=== PATIENT | female | born 1995 | race American Indian/Alaskan Native ===

== ENCOUNTER 2018-03-14 11:43 | Emergency (ER) | payer SELFPAY ==
[2018-03-14] MEDS ORDERED: NACL 0.9% 1000 ML 1,000 ML IV ONE (11:56)
[2018-03-14] MEDS ORDERED: MORPHINE IV ONE ×2 (12:24→15:23)
[2018-03-14] MEDS ORDERED: SOLU-Medrol IV ONE (12:24)
[2018-03-14] MEDS ORDERED: ZOFRAN IV ONE (12:24)
[2018-03-14] MEDS ORDERED: MORPHINE ONE (12:39)
--- NOTE | 2018-03-14 12:48 | Emergency Department Report ---
ED Abdominal Pain HPI - General Chief Complaint: Abdominal Pain Stated Complaint: PAIN/CROHNS Time Seen by Provider: 03/14/18 12:07 Source: patient Mode of arrival: Ambulatory Limitations: No Limitations - History of Present Illness Initial Comments: 23-year-old female presents to ED with complaint of abdominal pain 2 weeks. Patient has history of Crohn's disease currently with ileostomy. The patient reports left sided abdominal pain and rectal pain. Patient states she was seen at an outside facility approximately 2 weeks ago for same and given a prescription for Flagyl and steroids. She reports seeing small amount of blood and mucus in stool. 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 MD Complaint: abdominal pain -: week(s) (2) Location: LLQ Radiation: back, other (bilateral legs) Migration to: no migration Severity: severe Quality: sharp Consistency: constant Improves With: nothing Worsens With: nothing Associated Symptoms: denies: nausea, vomiting - Related Data Previous Rx's Medication Instructions Recorded Last Taken Type Dicyclomine [Bentyl] 20 mg PO QID PRN #20 tablet 03/14/18 Unknown Rx Promethazine [Phenergan TAB] 25 mg PO Q6HR PRN #20 tab 03/14/18 Unknown Rx predniSONE [Prednisone] 50 mg PO DAILY #5 tablet 03/14/18 Unknown Rx traMADol [Ultram] 50 mg PO Q6HR PRN #7 tablet 03/14/18 Unknown Rx Allergies Allergy/AdvReac Type Severity Reaction Status Date / Time ciprofloxacin [From Cipro] Allergy Unknown Verified 03/14/18 11:51 ibuprofen Allergy Unknown Verified 03/14/18 11:51 ketorolac [From Toradol] Allergy Unknown Verified 03/14/18 11:51 ED Review of Systems ROS: Stated complaint: PAIN/CROHNS Other details as noted in HPI Comment: All other systems reviewed and negative Constitutional: denies: chills, fever Gastrointestinal: abdominal pain. denies: nausea, vomiting, diarrhea ED Past Medical Hx - Past Medical History Previous Medical History?: Yes Additional medical history: Chron's Disease - Surgical History Past Surgical History?: Yes Additional Surgical History: Ileostomy - Social History Smoking Status: Never Smoker Substance Use Type: None - Medications Home Medications: Home Medications Medication Instructions Recorded Confirmed Last Taken Type Dicyclomine [Bentyl] 20 mg PO QID PRN #20 tablet 03/14/18 Unknown Rx Promethazine [Phenergan TAB] 25 mg PO Q6HR PRN #20 tab 03/14/18 Unknown Rx predniSONE [Prednisone] 50 mg PO DAILY #5 tablet 03/14/18 Unknown Rx traMADol [Ultram] 50 mg PO Q6HR PRN #7 tablet 03/14/18 Unknown Rx ED Physical Exam - General Limitations: No Limitations General appearance: alert, other (appears uncomfortable) - Head Head exam: Present: atraumatic, normocephalic - Eye Eye exam: Present: normal appearance - ENT ENT exam: Present: mucous membranes moist - Neck Neck exam: Present: normal inspection - Respiratory Respiratory exam: Present: normal lung sounds bilaterally. Absent: respiratory distress - Cardiovascular Cardiovascular Exam: Present: normal rhythm, tachycardia - GI/Abdominal GI/Abdominal exam: Present: soft, tenderness (LLQ), other (colostomy bag in place with brown stool, no blood present). Absent: distended, guarding, rebound - Extremities Exam Extremities exam: Present: normal inspection - Neurological Exam Neurological exam: Present: alert, oriented X3 - Psychiatric Psychiatric exam: Present: normal affect, normal mood - Skin Skin exam: Present: warm, dry, intact, normal color ED Course Vital Signs 03/14/18 03/14/18 03/14/18 11:51 13:09 14:30 Temperature 97.8 F 99.5 F 98.4 F Pulse Rate 128 H 124 H 102 H Respiratory 18 16 14 Rate Blood Pressure 111/72 Blood Pressure 123/86 111/79 [Left] O2 Sat by Pulse 99 100 100 Oximetry 03/14/18 16:14 Temperature Pulse Rate 88 Respiratory 16 Rate Blood Pressure Blood Pressure 121/76 [Left] O2 Sat by Pulse 100 Oximetry ED Medical Decision Making - Lab Data Result diagrams: 03/14/18 12:24 03/14/18 12:24 - EKG Data -: EKG Interpreted by Nm EKG shows normal: sinus rhythm, axis, intervals, QRS complexes, ST-T waves Rate: tachycardia (rate 111) - EKG Data Interpretation: no acute changes - Medical Decision Making 23-year-old female presents to the ED with Crohn's flare, states pain feels like her usual pain. There was some question of an abnormality in RLQ, however, pt has no tenderness in RLQ. Pain is in LLQ. Denies vag discharge, pt afebrile, l ikely not TOA. Ovarian cyst also a possibility. Patient feeling much better, ambulated to restroom w/o difficulty. Will provide info for GI follow-up. - Differential Diagnosis bowel obstruction, UTI, Critical care attestation.: If time is entered above; I have spent that time in minutes in the direct care of this critically ill patient, excluding procedure time. ED Disposition Clinical Impression: Abdominal pain Disposition: TO HOME OR SELFCARE Is pt being admited?: No Condition: Stable Instructions: Abdominal Pain (ED) Prescriptions: Dicyclomine [Bentyl] 20 mg PO QID PRN #20 tablet PRN Reason: abdominal pain predniSONE [Prednisone] 50 mg PO DAILY #5 tablet Promethazine [Phenergan TAB] 25 mg PO Q6HR PRN #20 tab PRN Reason: Nausea traMADol [Ultram] 50 mg PO Q6HR PRN #7 tablet PRN Reason: Pain Referrals: [facility] [Provider Group] - 3-5 Days [facility] [Provider Group] - 3-5 Days Time of Disposition: 15:33
[2018-03-14 13:07] LABS: INR 1.1 (0.87-1.13); Partial Thromboplastin Time 26.3 Sec. (24.2-36.6)
[2018-03-14 13:10] LABS: Basophils # (Auto) 0.1 K/mm3 (0.0-0.1); Basophils % (Auto) 0.4 % (0.0-1.8); Eosinophils # (Auto) 0.5 K/mm3 (0.0-0.4); Eosinophils % (Auto) 3.5 % (0.0-4.3); Lymphocytes # (Auto) 2.4 K/mm3 (1.2-5.4); Lymphocytes % (Auto) 18.1 % (13.4-35.0); Mean Corpuscular HGB Conc 31 % (30-34); Monocytes # (Auto) 1.6 K/mm3 (0.0-0.8); Monocytes % (Auto) 11.7 % (0.0-7.3); Platelet Count 550 K/mm3 (140-440); Red Blood Count 4.62 M/mm3 (3.65-5.03)
[2018-03-14 13:14] LABS: Mean Corpuscular Volume 69 fl (79-97); Red Cell Distribution Width 21.6 % (13.2-15.2)
[2018-03-14 13:17] LABS: Alanine Aminotransferase 6 units/L (7-56); Albumin 3.2 g/dL (3.9-5); BUN/Creatinine Ratio 6; Blood Urea Nitrogen 4 mg/dL (7-17); Calcium 8.9 mg/dL (8.4-10.2); Hemolysis Index 9
[2018-03-14] MEDS ORDERED: BENADRYL PO ONE ×2 (13:29)
--- NOTE | 2018-03-14 15:04 | Cat Scan Report ---
FINAL REPORT EXAM: CT ABDOMEN PELVIS W CON HISTORY: abd pain TECHNIQUE: CT examination of the ABDOMEN after IV contrast CT examination of the PELVIS after IV contrast PRIORS: None. FINDINGS: Slight linear scar versus atelectasis left lower lobe. No acute fracture. Normal-appearing liver, gal lbladder, adrenals, pancreas, and spleen. Intact normal caliber abdominal aorta and IVC. Normal-appea ring kidneys. Normal proximal ureters. Distal ureters obscured by adjacent anatomy. Right lower quadrant enterostomy may be an ileostomy. Otherwise intact anterior abdominal wall. No re troperitoneal adenopathy. No evidence of mesenteric mass. Normal-appearing stomach and duodenum. No s mall bowel distention in the abdomen and pelvis. No definite pelvic free fluid. Normal-appearing urinary bladder, uterus, and left adnexa. Nonspecific coiled perirectal catheter. No definite evidence of rectal or sigmoid abnormality. No talha ss ascites, free air, or colonic distention. Normal-appearing cecum and terminal ileum. Appendix not visualized. Nonspecific ring-enhancing lesion is noted in the right adnexa. It measures 22 mm. IMPRESSION: Nonspecific 22 mm ring-enhancing lesion in the right adnexa may be an ovarian hemorrhagic cyst. Diffe rential includes small tubo-ovarian abscess or even inflammation of the appendix since the appendix i s not separately identified. Correlate with surgical history. Slight linear scar versus atelectasis left lower lobe Right lower quadrant enterostomy may be an ileostomy Nonspecific coiled perirectal catheter
[2018-03-14 16:08] LABS: Bacteria,Urine 1+ /HPF (Negative); Bilirubin,Urine NEG (Negative); Blood,Urine NEG (Negative); Color,Urine Straw (Yellow); Mucus,Urine FEW /HPF; Protein,Urine <15 mg/dL mg/dL (Negative); Urobilinogen,Urine < 2.0 mg/dL (<2.0)
[2018-03-14 16:14] VITALS: BP 121/76
== END 2018-03-14 16:14 | disposition home or self-care (01) ==
LOC: ED 11:43
DX: R10.32 Left lower quadrant pain (principal); K50.90 Crohn's disease, unspecified, without complications; Z88.1 Allergy status to other antibiotic agents; Z88.5 Allergy status to narcotic agent; Z93.2 Ileostomy status
CPT/HCPCS: 36415; 74177; 80053; 81001; 83690; 84703; 85025; 85610; 85730; 86850; 86900; 86901; 93005; 93010; 96374; 96375; 96376; 99284; J2270; J2405; J2930; J7030; Q9967

== ENCOUNTER 2018-05-10 21:52 | Emergency (ER) | payer MEDICAID, OTHER ==
--- NOTE | 2018-05-10 22:14 | Emergency Department Report ---
Chief Complaint: Abdominal Pain Stated Complaint: N/V/ABD/BACK PAIN Time Seen by Provider: 05/10/18 22:07 - HPI History of Present Illness: This is a 23 y.o. female with concern of possible crohn's flare. - ROS Review of Systems: diarrhea, nausea/vomiting, and abdominal pain - Exam Vital Signs: Vital Signs 05/10/18 22:07 Temperature 98.2 F Pulse Rate 97 H Respiratory 16 Rate Blood Pressure 112/70 O2 Sat by Pulse 97 Oximetry MSE screening note: Focused history and physical exam performed. Due to findings the following was ordered: labs and XR of abdomen Fast track for further evaluation. ED Disposition for MSE Condition: Stable Instructions: Abdominal Pain (ED)
[2018-05-10 22:44] LABS: Basophils % (Auto) 0.2 % (0.0-1.8); Eosinophils % (Auto) 0.2 % (0.0-4.3); Hematocrit 31.8 % (30.3-42.9); Hemoglobin 10.2 gm/dl (10.1-14.3); Lymphocytes % (Auto) 20.1 % (13.4-35.0); Mean Corpuscular HGB Conc 32 % (30-34); Monocytes # (Auto) 1.4 K/mm3 (0.0-0.8); Monocytes % (Auto) 14.1 % (0.0-7.3); Platelet Count 470 K/mm3 (140-440); Red Blood Count 4.67 M/mm3 (3.65-5.03)
[2018-05-10 22:46] LABS: Mean Corpuscular Volume 68 fl (79-97); Red Cell Distribution Width 20.7 % (13.2-15.2)
[2018-05-10 23:03] LABS: HCG Qualitative,Urine Negative (Negative)
[2018-05-10 23:17] LABS: Alanine Aminotransferase 7 units/L (7-56); Albumin 3.5 g/dL (3.9-5); BUN/Creatinine Ratio 10; Blood Urea Nitrogen 6 mg/dL (7-17); Calcium 9.1 mg/dL (8.4-10.2); Hemolysis Index 4
[2018-05-10 23:36] LABS: Erythrocyte Sedimentation Rate 32 mm/Hr (0-20)
--- NOTE | 2018-05-10 23:38 | XRay Report ---
PROCEDURE: XR ABDOMEN 2V TECHNIQUE: Supine and upright views of the abdomen HISTORY: abdominal pain COMPARISONS: CT A/P 03/14/2018 . FINDINGS: The bowel gas pattern is nonspecific. No free air is identified. Soft tissues have no evidence for ma ss shadows or calcifications. The bony structures are intact. IMPRESSION: Nonspecific, nonobstructive bowel gas pattern with no acute process noted. This document is electronically signed by Pam Xie MD., May 10 2018 11:36:56 PM ET
[2018-05-11] MEDS ORDERED: MORPHINE IV ONE ×2 (00:07→02:15)
[2018-05-11] MEDS ORDERED: SOLU-Medrol IV ONE (00:07)
[2018-05-11] MEDS ORDERED: ZOFRAN IV ONE ×2 (00:07→02:16)
[2018-05-11] MEDS ORDERED: NACL 0.9% 1000 ML 1,000 ML IV ONE (00:07)
[2018-05-11 01:15] LABS: Amorphous Crystals,Urine 1+; Bacteria,Urine 1+ /HPF (Negative); Bilirubin,Urine NEG (Negative); Blood,Urine MOD (Negative); Color,Urine Yellow (Yellow); Mucus,Urine FEW /HPF; Protein,Urine <15 mg/dL mg/dL (Negative); Urobilinogen,Urine < 2.0 mg/dL (<2.0)
[2018-05-11] MEDS ORDERED: BENADRYL ONE (01:53)
[2018-05-11] MEDS ORDERED: BENADRYL IV ONE (02:17)
--- NOTE | 2018-05-11 02:28 | Emergency Department Report ---
ED Abdominal Pain HPI - General Chief Complaint: Abdominal Pain Stated Complaint: N/V/ABD/BACK PAIN Time Seen by Provider: 05/10/18 22:07 Source: patient Mode of arrival: Ambulatory Limitations: No Limitations - History of Present Illness Initial Comments: 23-year-old female with history of Crohn's disease, ileostomy in place, presents with abdominal pain, back pain, bilateral leg pain. Patient believes this is a Crohn's flareup. Patient is having pain in her left lower quadrant, which is usual for her Crohn's disease. Also reports associated diarrhea, nausea and vomiting. Denies fever. MD Complaint: abdominal pain -: days(s) (1) Location: LLQ Radiation: back Severity: moderate Severity scale (0 -10): 8 Quality: cramping, aching Consistency: constant Improves With: nothing Worsens With: nothing Associated Symptoms: nausea, vomiting, diarrhea. denies: fever, hematochezia - Related Data Previous Rx's Medication Instructions Recorded Last Taken Type Dicyclomine [Bentyl] 20 mg PO QID PRN #20 tablet 03/14/18 Unknown Rx Promethazine [Phenergan TAB] 25 mg PO Q6HR PRN #20 tab 03/14/18 Unknown Rx predniSONE [Prednisone] 50 mg PO DAILY #5 tablet 03/14/18 Unknown Rx traMADol [Ultram] 50 mg PO Q6HR PRN #7 tablet 03/14/18 Unknown Rx Dicyclomine [Bentyl] 20 mg PO QID PRN #20 tablet 05/11/18 Unknown Rx Ondansetron [Zofran Odt] 4 mg PO Q8HR PRN #20 tab.rapdis 05/11/18 Unknown Rx predniSONE [Prednisone] 50 mg PO DAILY #5 tablet 05/11/18 Unknown Rx traMADol [Ultram] 50 mg PO Q6HR PRN #7 tablet 05/11/18 Unknown Rx Allergies Allergy/AdvReac Type Severity Reaction Status Date / Time ciprofloxacin [From Cipro] Allergy Unknown Verified 03/14/18 11:51 ibuprofen Allergy Unknown Verified 03/14/18 11:51 ketorolac [From Toradol] Allergy Unknown Verified 03/14/18 11:51 ED Review of Systems ROS: Stated complaint: N/V/ABD/BACK PAIN Other details as noted in HPI Comment: All other systems reviewed and negative Constitutional: denies: chills, fever Gastrointestinal: abdominal pain, vomiting, diarrhea Genitourinary: denies: dysuria, frequency ED Past Medical Hx - Past Medical History Additional medical history: Chron's Disease - Surgical History Additional Surgical History: Ileostomy - Social History Smoking Status: Never Smoker Substance Use Type: None - Medications Home Medications: Home Medications Medication Instructions Recorded Confirmed Last Taken Type Dicyclomine [Bentyl] 20 mg PO QID PRN #20 tablet 03/14/18 Unknown Rx Promethazine [Phenergan TAB] 25 mg PO Q6HR PRN #20 tab 03/14/18 Unknown Rx predniSONE [Prednisone] 50 mg PO DAILY #5 tablet 03/14/18 Unknown Rx traMADol [Ultram] 50 mg PO Q6HR PRN #7 tablet 03/14/18 Unknown Rx Dicyclomine [Bentyl] 20 mg PO QID PRN #20 tablet 05/11/18 Unknown Rx Ondansetron [Zofran Odt] 4 mg PO Q8HR PRN #20 tab.rapdis 05/11/18 Unknown Rx predniSONE [Prednisone] 50 mg PO DAILY #5 tablet 05/11/18 Unknown Rx traMADol [Ultram] 50 mg PO Q6HR PRN #7 tablet 05/11/18 Unknown Rx ED Physical Exam - General Limitations: No Limitations General appearance: alert, in no apparent distress - Head Head exam: Present: atraumatic, normocephalic - Eye Eye exam: Present: normal appearance - ENT ENT exam: Present: mucous membranes moist - Neck Neck exam: Present: normal inspection - Respiratory Respiratory exam: Present: normal lung sounds bilaterally. Absent: respiratory distress - Cardiovascular Cardiovascular Exam: Present: regular rate, normal rhythm - GI/Abdominal GI/Abdominal exam: Present: soft, tenderness (mild LLQ tenderness), other (ileostomy in place and right lower quadrant). Absent: distended - Extremities Exam Extremities exam: Present: normal inspection. Absent: pedal edema - Back Exam Back exam: Absent: CVA tenderness (R), CVA tenderness (L) - Neurological Exam Neurological exam: Present: alert, oriented X3 - Psychiatric Psychiatric exam: Present: normal affect, normal mood - Skin Skin exam: Present: warm, dry, intact, normal color ED Course Vital Signs 05/10/18 05/11/18 22:07 00:56 Temperature 98.2 F Pulse Rate 97 H Respiratory 16 18 Rate Blood Pressure 112/70 O2 Sat by Pulse 97 98 Oximetry ED Medical Decision Making - Lab Data Result diagrams: 05/10/18 22:18 05/10/18 22:18 - Radiology Data Radiology results: report reviewed - Medical Decision Making 23-year-old female with Crohn's disease presents with abdominal pain. Labs normal, vital signs normal, abdominal x-ray normal. Patient given 2 doses of pain medication with relief of pain. 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 Information given for [facility]. Outpatient follow-up advised. Return precautions given. Prescriptions given for Bentyl, prednisone, Ultram. - Differential Diagnosis Crohn's flare, bowel obstruction, UTI Critical care attestation.: If time is entered above; I have spent that time in minutes in the direct care of this critically ill patient, excluding procedure time. ED Disposition Clinical Impression: Abdominal pain Disposition: DC-01 TO HOME OR SELFCARE Is pt being admited?: No Condition: Stable Instructions: Abdominal Pain (ED) Prescriptions: Dicyclomine [Bentyl] 20 mg PO QID PRN #20 tablet PRN Reason: abdominal pain predniSONE [Prednisone] 50 mg PO DAILY #5 tablet traMADol [Ultram] 50 mg PO Q6HR PRN #7 tablet PRN Reason: Pain Ondansetron [Zofran Odt] 4 mg PO Q8HR PRN #20 tab.rapdis PRN Reason: Vomiting Referrals: ANNIE OLIVER MD [Primary Care Provider] - 3-5 Days [facility] [Provider Group] - 3-5 Days DEANN PALMER MD [Staff Physician] - 3-5 Days [facility] [Provider Group] - 3-5 Days Time of Disposition: 02:30
[2018-05-11 04:17] VITALS: BP 129/91
== END 2018-05-11 04:21 | disposition home or self-care (01) ==
LOC: ED 21:52
DX: R10.32 Left lower quadrant pain (principal); R11.2 Nausea with vomiting, unspecified; R19.7 Diarrhea, unspecified; Z79.899 Other long term (current) drug therapy; Z88.6 Allergy status to analgesic agent; Z88.1 Allergy status to other antibiotic agents
CPT/HCPCS: 36415; 74019; 80053; 81001; 81025; 85025; 85652; 96361; 96374; 96375; 96376; 99284; J1200; J2270; J2405; J2930

== ENCOUNTER 2018-06-04 15:51 | Emergency (ER) | payer MEDICAID ==
--- NOTE | 2018-06-04 16:31 | Emergency Department Report ---
Blank Doc - Documentation Documentation: 23 y/o with PMH chrons c/o of vomiting and increase watery stool from colostom y/. no fever or bleeding. PLAN labs and
[2018-06-04 16:55] LABS: Basophils % (Auto) 0.1 % (0.0-1.8); Hematocrit 31.3 % (30.3-42.9); Lymphocytes # (Auto) 0.6 K/mm3 (1.2-5.4); Lymphocytes % (Auto) 9.1 % (13.4-35.0); Mean Corpuscular HGB Conc 32 % (30-34); Monocytes # (Auto) 0.2 K/mm3 (0.0-0.8); Monocytes % (Auto) 3.7 % (0.0-7.3); Platelet Count 484 K/mm3 (140-440); Red Blood Count 4.57 M/mm3 (3.65-5.03)
[2018-06-04 16:57] LABS: Mean Corpuscular Volume 69 fl (79-97); Red Cell Distribution Width 20.9 % (13.2-15.2)
[2018-06-04 17:16] LABS: HCG Qualitative,Urine Negative (Negative)
[2018-06-04 17:18] LABS: Bilirubin,Urine NEG (Negative); Blood,Urine NEG (Negative); Color,Urine Yellow (Yellow); Mucus,Urine FEW /HPF; Protein,Urine <15 mg/dL mg/dL (Negative); Urobilinogen,Urine < 2.0 mg/dL (<2.0)
[2018-06-04 17:27] LABS: Alanine Aminotransferase 9 units/L (7-56); Albumin 3.9 g/dL (3.9-5); BUN/Creatinine Ratio 9; Blood Urea Nitrogen 6 mg/dL (7-17); Calcium 9.3 mg/dL (8.4-10.2); Hemolysis Index 2
[2018-06-04 17:33] LABS: Bilirubin,Direct < 0.2 mg/dL (0-0.2)
[2018-06-04] MEDS ORDERED: DECADRON IV ONE (19:46)
[2018-06-04] MEDS ORDERED: ZOFRAN IV ONE (19:46)
[2018-06-04] MEDS ORDERED: NACL 0.9% 1000 ML 1,000 ML IV ONE (19:46)
[2018-06-04] MEDS ORDERED: MORPHINE IV ONE ×2 (19:46→22:24)
--- NOTE | 2018-06-04 19:46 | Emergency Department Report ---
ED Abdominal Pain HPI - General Chief Complaint: Abdominal Pain Stated Complaint: CROHN DISEASE/BACK/NAUSEA/VOMITING Time Seen by Provider: 06/04/18 16:29 Source: patient Mode of arrival: Ambulatory Limitations: No Limitations - History of Present Illness Initial Comments: 23-year-old -[place] female presents to the emergency room for lower back and abdominal pain with nausea and vomiting onset yesterday. Patient states that she feels that this is a flareup of her Crohn's disease. Patient pushes off of her medications since she relocated. MD Complaint: abdominal pain Location: LLQ, RLQ Radiation: back Severity scale (0 -10): 10 Quality: cramping, stabbing Consistency: constant Improves With: nothing Worsens With: nothing Associated Symptoms: nausea, vomiting, diarrhea. denies: fever - Related Data Previous Rx's Medication Instructions Recorded Last Taken Type Dicyclomine [Bentyl] 20 mg PO QID PRN #20 tablet 03/14/18 Unknown Rx predniSONE [Prednisone] 50 mg PO DAILY #5 tablet 03/14/18 Unknown Rx traMADol [Ultram] 50 mg PO Q6HR PRN #7 tablet 03/14/18 Unknown Rx Dicyclomine [Bentyl] 20 mg PO QID PRN #20 tablet 05/11/18 Unknown Rx Ondansetron [Zofran Odt] 4 mg PO Q8HR PRN #20 tab.rapdis 05/11/18 Unknown Rx predniSONE [Prednisone] 50 mg PO DAILY #5 tablet 05/11/18 Unknown Rx traMADol [Ultram] 50 mg PO Q6HR PRN #7 tablet 05/11/18 Unknown Rx Prednisone [predniSONE 10 mg 10 mg PO .TAPER #1 tab.ds.pk 06/04/18 Unknown Rx (6-Day Pack, 21 Tabs)] Promethazine [Phenergan TAB] 25 mg PO Q6HR PRN #20 tab 06/04/18 Unknown Rx Allergies Allergy/AdvReac Type Severity Reaction Status Date / Time ciprofloxacin [From Cipro] Allergy Unknown Verified 03/14/18 11:51 ibuprofen Allergy Unknown Verified 03/14/18 11:51 ketorolac [From Toradol] Allergy Unknown Verified 03/14/18 11:51 ED Review of Systems ROS: Stated complaint: CROHN DISEASE/BACK/NAUSEA/VOMITING Other details as noted in HPI Comment: All other systems reviewed and negative Gastrointestinal: abdominal pain, nausea, vomiting, diarrhea Musculoskeletal: back pain ED Past Medical Hx - Past Medical History Previous Medical History?: Yes Additional medical history: Chron's Disease - Surgical History Past Surgical History?: Yes Additional Surgical History: Ileostomy - Social History Smoking Status: Never Smoker Substance Use Type: None - Medications Home Medications: Home Medications Medication Instructions Recorded Confirmed Last Taken Type Dicyclomine [Bentyl] 20 mg PO QID PRN #20 tablet 03/14/18 Unknown Rx predniSONE [Prednisone] 50 mg PO DAILY #5 tablet 03/14/18 Unknown Rx traMADol [Ultram] 50 mg PO Q6HR PRN #7 tablet 03/14/18 Unknown Rx Dicyclomine [Bentyl] 20 mg PO QID PRN #20 tablet 05/11/18 Unknown Rx Ondansetron [Zofran Odt] 4 mg PO Q8HR PRN #20 tab.rapdis 05/11/18 Unknown Rx predniSONE [Prednisone] 50 mg PO DAILY #5 tablet 05/11/18 Unknown Rx traMADol [Ultram] 50 mg PO Q6HR PRN #7 tablet 05/11/18 Unknown Rx Prednisone [predniSONE 10 mg 10 mg PO .TAPER #1 tab.ds.pk 06/04/18 Unknown Rx (6-Day Pack, 21 Tabs)] Promethazine [Phenergan TAB] 25 mg PO Q6HR PRN #20 tab 06/04/18 Unknown Rx ED Physical Exam - General Limitations: No Limitations General appearance: alert, in no apparent distress, other (tearful) - Head Head exam: Present: atraumatic, normocephalic - Eye Eye exam: Present: normal appearance - ENT ENT exam: Present: mucous membranes moist - Neck Neck exam: Present: normal inspection - Respiratory Respiratory exam: Present: normal lung sounds bilaterally - Cardiovascular Cardiovascular Exam: Present: regular rate, normal rhythm. Absent: systolic murmur, diastolic murmur, rubs, gallop - GI/Abdominal GI/Abdominal exam: Present: soft, tenderness, normal bowel sounds, other (colostomy in place) - Extremities Exam Extremities exam: Present: normal inspection - Back Exam Back exam: Present: normal inspection - Neurological Exam Neurological exam: Present: alert, oriented X3 - Psychiatric Psychiatric exam: Present: normal affect, normal mood ED Course Vital Signs 06/04/18 06/04/1819 15:54 21:02 22:29 Temperature 98 F Pulse Rate 101 H 82 Respiratory 18 18 18 Rate Blood Pressure 115/69 Blood Pressure 120/78 [Right] O2 Sat by Pulse 99 98 Oximetry 06/04/18 23:30 Temperature Pulse Rate 86 Respiratory 18 Rate Blood Pressure Blood Pressure 112/68 [Right] O2 Sat by Pulse 100 Oximetry ED Medical Decision Making - Lab Data Result diagrams: 06/04/18 16:40 06/04/18 16:40 - Medical Decision Making Patient has been evaluated by this provider in [facility]. IV of normal saline. Patient reports that she needs to leave AMA as she was having a family vi gency. With her daughter. Critical care attestation.: If time is entered above; I have spent that time in minutes in the direct care of this critically ill patient, excluding procedure time. ED Disposition Clinical Impression: Abdominal pain, Crohns disease Disposition: DC- TO HOME OR SELFCARE Is pt being admited?: No Does the pt Need Aspirin: No Condition: Stable Instructions: Abdominal Pain (ED) Additional Instructions: Please take medication as prescribed. Follow up with repairer art objects I have listed several below. Prescriptions: Promethazine [Phenergan TAB] 25 mg PO Q6HR PRN #20 tab PRN Reason: Nausea Prednisone [predniSONE 10 mg (6-Day Pack, 21 Tabs)] 10 mg PO .TAPER #1 tab.ds.pk Referrals: JOSÉ HANCOCK MD [Primary Care Provider] - 3-5 Days [facility] [Provider Group] - 3-5 Days [facility] [Provider Group] - 3-5 Days Forms: Work/School Release Form(ED)
[2018-06-04] MEDS ORDERED: BENADRYL ONE (20:49)
[2018-06-04] MEDS ORDERED: BENADRYL IV ONE (20:49)
[2018-06-04] MEDS ORDERED: MORPHINE ONE (22:24)
[2018-06-05 05:23] VITALS: BP 112/68
== END 2018-06-05 | disposition home or self-care (01) ==
LOC: ED 15:51
DX: K50.90 Crohn's disease, unspecified, without complications (principal); Z88.6 Allergy status to analgesic agent; Z88.1 Allergy status to other antibiotic agents
CPT/HCPCS: 36415; 80048; 80076; 81001; 81025; 83690; 85025; 96361; 96374; 96375; 96376; 99283; J1100; J1200; J2270; J2405; J7030

== ENCOUNTER 2018-06-20 20:22 | Emergency (ER) | payer MEDICAID ==
--- NOTE | 2018-06-20 20:30 | Emergency Department Report ---
Chief Complaint: Abdominal Pain Stated Complaint: VOMITING, BACK, ABDOMINAL, AND LEFT LEG PAIN Time Seen by Provider: 06/20/18 20:28 - HPI History of Present Illness: pmh chrones disease irreg menses- [address] Crain abd pain chills MSE completed MSE screening note: Focused history and physical exam performed. Due to findings the following was ordered: ED Disposition for MSE Condition: Stable Instructions: Abdominal Pain (ED)
[2018-06-20 21:07] LABS: Basophils # (Auto) 0.1 K/mm3 (0.0-0.1); Basophils % (Auto) 0.8 % (0.0-1.8); Eosinophils # (Auto) 0.2 K/mm3 (0.0-0.4); Eosinophils % (Auto) 2.3 % (0.0-4.3); Hematocrit 34.7 % (30.3-42.9); Hemoglobin 10.8 gm/dl (10.1-14.3); Lymphocytes # (Auto) 3.5 K/mm3 (1.2-5.4); Lymphocytes % (Auto) 46.2 % (13.4-35.0); Mean Corpuscular HGB Conc 31 % (30-34); Monocytes # (Auto) 0.8 K/mm3 (0.0-0.8); Monocytes % (Auto) 10.4 % (0.0-7.3); Platelet Count 409 K/mm3 (140-440); Red Blood Count 4.97 M/mm3 (3.65-5.03)
[2018-06-20 21:09] LABS: BUN/Creatinine Ratio 7; Blood Urea Nitrogen 5 mg/dL (7-17); Calcium 9.2 mg/dL (8.4-10.2); Hemolysis Index 8
[2018-06-20 21:11] LABS: Alanine Aminotransferase 8 units/L (7-56); Albumin 3.8 g/dL (3.9-5)
[2018-06-20 21:14] LABS: Bilirubin,Direct < 0.2 mg/dL (0-0.2)
[2018-06-20 21:32] LABS: Mean Corpuscular Volume 70 fl (79-97); Red Cell Distribution Width 20.8 % (13.2-15.2)
[2018-06-20] MEDS ORDERED: REGLAN IV ONE (22:43)
[2018-06-20] MEDS ORDERED: NACL 0.9% 1000 ML 1,000 ML IV ONE (22:43)
[2018-06-20] MEDS ORDERED: BENADRYL IV ONE (22:43)
--- NOTE | 2018-06-20 22:54 | Emergency Department Report ---
ED Abdominal Pain HPI - General Chief Complaint: Abdominal Pain Stated Complaint: VOMITING, BACK, ABDOMINAL, AND LEFT LEG PAIN Time Seen by Provider: 06/20/18 20:28 Source: patient Mode of arrival: Ambulatory Limitations: No Limitations - History of Present Illness Initial Comments: 23-year-old -[place] female presents to the emergency room for nausea and vomiting abdominal pain 2 days. Patient denies any vaginal discharge or urinary frequency or urgency or dysuria. Patient reports she has a history of Crohn's disease and feels like it's clearing. Patient also reports that her ostomy site is itchiness. Patient reports the abdominal pain is located in the left upper to mid abdominal area. Patient reports that she states just started Remicade and Azathiopine. She was recently seen here on 06/04/2018. Complaint: abdominal pain -: days(s) (2) Location: LLQ Radiation: none Severity scale (0 -10): 10 Quality: cramping, stabbing Consistency: constant Improves With: nothing Worsens With: nothing - Related Data Previous Rx's Medication Instructions Recorded Last Taken Type Dicyclomine [Bentyl] 20 mg PO QID PRN #20 tablet 03/14/18 Unknown Rx predniSONE [Prednisone] 50 mg PO DAILY #5 tablet 03/14/18 Unknown Rx traMADol [Ultram] 50 mg PO Q6HR PRN #7 tablet 03/14/18 Unknown Rx Dicyclomine [Bentyl] 20 mg PO QID PRN #20 tablet 05/11/18 Unknown Rx Ondansetron [Zofran Odt] 4 mg PO Q8HR PRN #20 tab.rapdis 05/11/18 Unknown Rx predniSONE [Prednisone] 50 mg PO DAILY #5 tablet 05/11/18 Unknown Rx traMADol [Ultram] 50 mg PO Q6HR PRN #7 tablet 05/11/18 Unknown Rx Prednisone [predniSONE 10 mg 10 mg PO .TAPER #1 tab.ds.pk 06/04/18 Unknown Rx (6-Day Pack, 21 Tabs)] Promethazine [Phenergan TAB] 25 mg PO Q6HR PRN #20 tab 06/04/18 Unknown Rx Allergies Allergy/AdvReac Type Severity Reaction Status Date / Time ciprofloxacin [From Cipro] Allergy Unknown Verified 03/14/18 11:51 ibuprofen Allergy Unknown Verified 03/14/18 11:51 ketorolac [From Toradol] Allergy Unknown Verified 03/14/18 11:51 ED Review of Systems ROS: Stated complaint: VOMITING, BACK, ABDOMINAL, AND LEFT LEG PAIN Other details as noted in HPI Comment: All other systems reviewed and negative ED Past Medical Hx - Past Medical History Previous Medical History?: Yes Additional medical history: Chron's Disease - Surgical History Past Surgical History?: Yes Additional Surgical History: Ileostomy - Social History Smoking Status: Never Smoker Substance Use Type: None - Medications Home Medications: Home Medications Medication Instructions Recorded Confirmed Last Taken Type Dicyclomine [Bentyl] 20 mg PO QID PRN #20 tablet 03/14/18 Unknown Rx predniSONE [Prednisone] 50 mg PO DAILY #5 tablet 03/14/18 Unknown Rx traMADol [Ultram] 50 mg PO Q6HR PRN #7 tablet 03/14/18 Unknown Rx Dicyclomine [Bentyl] 20 mg PO QID PRN #20 tablet 05/11/18 Unknown Rx Ondansetron [Zofran Odt] 4 mg PO Q8HR PRN #20 tab.rapdis 05/11/18 Unknown Rx predniSONE [Prednisone] 50 mg PO DAILY #5 tablet 05/11/18 Unknown Rx traMADol [Ultram] 50 mg PO Q6HR PRN #7 tablet 05/11/18 Unknown Rx Prednisone [predniSONE 10 mg 10 mg PO .TAPER #1 tab.ds.pk 06/04/18 Unknown Rx (6-Day Pack, 21 Tabs)] Promethazine [Phenergan TAB] 25 mg PO Q6HR PRN #20 tab 06/04/18 Unknown Rx ED Physical Exam - General Limitations: No Limitations General appearance: alert, in no apparent distress - Head Head exam: Present: atraumatic, normocephalic - Eye Eye exam: Present: normal appearance - ENT ENT exam: Present: mucous membranes moist - Neck Neck exam: Present: normal inspection, full ROM - Respiratory Respiratory exam: Present: normal lung sounds bilaterally. Absent: respiratory distress - Cardiovascular Cardiovascular Exam: Present: regular rate, normal rhythm. Absent: systolic murmur, diastolic murmur, rubs, gallop - GI/Abdominal GI/Abdominal exam: Present: soft, tenderness (left lower quadrant), normal bowel sounds, other (right mid quadrant ostomy). Absent: distended, guarding - Extremities Exam Extremities exam: Present: normal inspection, full ROM - Back Exam Back exam: Present: normal inspection - Neurological Exam Neurological exam: Present: alert, oriented X3, CN II-XII intact, normal gait - Psychiatric Psychiatric exam: Present: normal affect, normal mood - Skin Skin exam: Present: warm, dry, intact, normal color. Absent: rash ED Medical Decision Making - Lab Data Result diagrams: 06/20/18 20:44 06/20/18 20:44 - Medical Decision Making Patient's been evaluated by this provider in fast track. IV insertion with normal saline IV Benadryl IV Reglan. Patient tells me that she is not able to stay as she has an emergency with her baby that they're taken her [facility]. Patient sign AMA forms. IV and was discontinued. Critical care attestation.: If time is entered above; I have spent that time in minutes in the direct care of this critically ill patient, excluding procedure time. ED Disposition Clinical Impression: Abdominal pain Disposition: [id number] LEFT AGAINST MED ADVICE Is pt being admited?: No Does the pt Need Aspirin: No Condition: Stable Instructions: Abdominal Pain (ED) Forms: AMA Form
[2018-06-20 22:56] VITALS: BP 109/74
[2018-06-20 23:26] LABS: Bilirubin,Urine NEG (Negative); Blood,Urine NEG (Negative); Color,Urine Yellow (Yellow); Mucus,Urine FEW /HPF; Protein,Urine <15 mg/dL mg/dL (Negative)
[2018-06-20 23:32] LABS: HCG Qualitative,Urine Negative (Negative); WBC,Urine < 1.0 /HPF (0.0-6.0)
== END 2018-06-20 23:50 | disposition left against medical advice (07) ==
LOC: ED 20:22
DX: R10.9 Unspecified abdominal pain (principal); R11.2 Nausea with vomiting, unspecified
CPT/HCPCS: 36415; 80048; 80076; 81001; 81025; 83690; 85025; 96374; 96375; 99283; J1200; J2765; J7030

== ENCOUNTER 2018-07-11 19:10 | Emergency (ER) | payer MEDICAID ==
--- NOTE | 2018-07-11 21:16 | Emergency Department Report ---
Chief Complaint: Abdominal Pain Stated Complaint: ABD/BACK PAIN/ITCHING Time Seen by Provider: 07/11/18 21:12 - HPI History of Present Illness: This is a 23 y.o. female that presents to the ER with abdominal pain radiating to left back. Patient states pain is not on illeostomy side, which is RUQ. PMH: crohns LMP 06/18/18. - Exam Vital Signs: Vital Signs 07/11/18 21:12 Temperature 98.3 F Pulse Rate 94 H Respiratory 18 Rate Blood Pressure 105/80 O2 Sat by Pulse 100 Oximetry MSE screening note: Focused history and physical exam performed. Due to findings the following was ordered: Labs ED Disposition for MSE Condition: Stable Instructions: Abdominal Pain (ED) Referrals: ANNIE OLIVER MD [Primary Care Provider] - 3-5 Days
[2018-07-11 21:38] LABS: Bilirubin,Urine NEG (Negative); Blood,Urine NEG (Negative); Color,Urine Yellow (Yellow); Mucus,Urine FEW /HPF; Protein,Urine <15 mg/dL mg/dL (Negative); Urobilinogen,Urine < 2.0 mg/dL (<2.0)
[2018-07-11 21:55] LABS: Basophils % (Auto) 0.6 % (0.0-1.8); Eosinophils % (Auto) 0.1 % (0.0-4.3); Hematocrit 35.7 % (30.3-42.9); Hemoglobin 11.4 gm/dl (10.1-14.3); Lymphocytes # (Auto) 0.9 K/mm3 (1.2-5.4); Lymphocytes % (Auto) 14.6 % (13.4-35.0); Mean Corpuscular HGB Conc 32 % (30-34); Mean Corpuscular Volume 72 fl (79-97); Monocytes # (Auto) 0.1 K/mm3 (0.0-0.8); Monocytes % (Auto) 1.6 % (0.0-7.3); Platelet Count 455 K/mm3 (140-440); Red Blood Count 4.98 M/mm3 (3.65-5.03)
[2018-07-11 21:56] LABS: Red Cell Distribution Width 22.9 % (13.2-15.2)
[2018-07-11 22:04] LABS: Alanine Aminotransferase 9 units/L (7-56); Albumin 4.3 g/dL (3.9-5); BUN/Creatinine Ratio 12; Blood Urea Nitrogen 7 mg/dL (7-17); Calcium 10.4 mg/dL (8.4-10.2); Hemolysis Index 29
[2018-07-12] MEDS ORDERED: ZOFRAN IV ONE (00:38)
[2018-07-12] MEDS ORDERED: MORPHINE IV ONE (00:38)
[2018-07-12] MEDS ORDERED: NACL 0.9% 1000 ML 1,000 ML IV ONE (00:38)
[2018-07-12] MEDS ORDERED: BENADRYL IV ONE (00:39)
--- NOTE | 2018-07-12 01:53 | Emergency Department Report ---
ED Abdominal Pain HPI - General Chief Complaint: Abdominal Pain Stated Complaint: ABD/BACK PAIN/ITCHING Time Seen by Provider: 07/11/18 21:12 Source: patient Mode of arrival: Ambulatory Limitations: No Limitations - History of Present Illness Initial Comments: Patient is a A0 23-year-old -[place]ien with a history chronic Crohn's disease s/p small bowel was partial resection and ileostomy bag placement presents to the ED with acute onset persistent diffuse abdominal pain for the last 2 days with nausea and vomiting intermittently. Patient denies diarrhea, dizziness, headache, chest pain, fever, chills, dysuria, urinary frequency and urgency, headache, back pain, chest pain or shortness of breath and vaginal bleeding or hematochezia. -: Sudden, days(s) (2) Location: suprapubic Radiation: suprapubic Migration to: no migration Severity: moderate Severity scale (0 -10): 6 Quality: cramping, aching, sharp Consistency: intermittent Improves With: nothing Worsens With: nothing Context: other (chronic Crohn's disease flare) Associated Symptoms: nausea, vomiting. denies: diarrhea, fever, chills, constipation, hematemesis, hematochezia, melena, hematuria, anorexia, syncope - Related Data Previous Rx's Medication Instructions Recorded Last Taken Type Dicyclomine [Bentyl] 20 mg PO QID PRN #20 tablet 03/14/18 Unknown Rx predniSONE [Prednisone] 50 mg PO DAILY #5 tablet 03/14/18 Unknown Rx traMADol [Ultram] 50 mg PO Q6HR PRN #7 tablet 03/14/18 Unknown Rx Dicyclomine [Bentyl] 20 mg PO QID PRN #20 tablet 05/11/18 Unknown Rx Ondansetron [Zofran Odt] 4 mg PO Q8HR PRN #20 tab.rapdis 05/11/18 Unknown Rx predniSONE [Prednisone] 50 mg PO DAILY #5 tablet 05/11/18 Unknown Rx Prednisone [predniSONE 10 mg 10 mg PO .TAPER #1 tab.ds.pk 06/04/18 Unknown Rx (6-Day Pack, 21 Tabs)] Promethazine [Phenergan] 25 mg PO Q6HR PRN #20 tab 06/04/18 Unknown Rx Ondansetron [Zofran Odt] 4 mg PO Q6HR #20 tab.rapdis 05/15/19 Unknown Rx traMADol [Ultram 50 MG tab] 50 mg PO Q6HR PRN #15 tablet 07/12/18 Unknown Rx Allergies Allergy/AdvReac Type Severity Reaction Status Date / Time ciprofloxacin [From Cipro] Allergy Unknown Verified 07/11/18 19:13 ibuprofen Allergy Unknown Verified 07/11/18 19:13 ketorolac [From Toradol] Allergy Unknown Verified 07/11/18 19:13 ED Review of Systems ROS: Stated complaint: ABD/BACK PAIN/ITCHING Other details as noted in HPI Comment: All other systems reviewed and negative Constitutional: no symptoms reported, see HPI. denies: chills, diaphoresis, fever, malaise Eyes: as per HPI. denies: eye pain, eye discharge, vision change ENT: as per HPI. denies: ear pain, throat pain, dental pain, hearing loss, epistaxis, congestion Respiratory: no symptoms reported, see HPI. denies: cough, orthopnea, shortness of breath, SOB with exertion, SOB at rest Cardiovascular: as per HPI. denies: chest pain, palpitations, dyspnea on exertion, edema, syncope, paroxysmal nocturnal dyspnea Endocrine: no symptoms reported. denies: see HPI, excessive sweating, flushing, increased hunger, increased thirst, unexplained weight gain Gastrointestinal: as per HPI, abdominal pain, nausea, vomiting. denies: diarrhea, hematochezia Genitourinary: as per HPI. denies: urgency, dysuria, frequency, hematuria, discharge, abnormal menses, dyspareunia, other Musculoskeletal: as per HPI. denies: back pain, joint swelling, arthralgia Skin: as per HPI. denies: rash, lesions, change in color, change in hair/nails, pruritus Neurological: as per HPI. denies: headache, numbness, paresthesias, confusion Psychiatric: as per HPI Hematological/Lymphatic: as per HPI ED Past Medical Hx - Past Medical History Previous Medical History?: Yes Additional medical history: Chron's Disease - Surgical History Past Surgical History?: Yes Additional Surgical History: Ileostomy - Social History Smoking Status: Never Smoker Substance Use Type: None - Medications Home Medications: Home Medications Medication Instructions Recorded Confirmed Last Taken Type Dicyclomine [Bentyl] 20 mg PO QID PRN #20 tablet 03/14/18 Unknown Rx predniSONE [Prednisone] 50 mg PO DAILY #5 tablet 03/14/18 Unknown Rx traMADol [Ultram] 50 mg PO Q6HR PRN #7 tablet 03/14/18 Unknown Rx Dicyclomine [Bentyl] 20 mg PO QID PRN #20 tablet 05/11/18 Unknown Rx Ondansetron [Zofran Odt] 4 mg PO Q8HR PRN #20 tab.rapdis 05/11/18 Unknown Rx predniSONE [Prednisone] 50 mg PO DAILY #5 tablet 05/11/18 Unknown Rx Prednisone [predniSONE 10 mg 10 mg PO .TAPER #1 tab.ds.pk 06/04/18 Unknown Rx (6-Day Pack, 21 Tabs)] Promethazine [Phenergan] 25 mg PO Q6HR PRN #20 tab 06/04/18 Unknown Rx Ondansetron [Zofran Odt] 4 mg PO Q6HR #20 tab.rapdis 07/12/18 Unknown Rx traMADol [Ultram 50 MG tab] 50 mg PO Q6HR PRN #15 tablet 07/12/18 Unknown Rx ED Physical Exam - General Limitations: No Limitations General appearance: alert, in no apparent distress - Head Head exam: Present: atraumatic, normocephalic, normal inspection - Eye Eye exam: Present: normal appearance, PERRL, EOMI - ENT ENT exam: Present: normal exam, normal orophraynx, mucous membranes moist, TM's normal bilaterally, normal external ear exam - Neck Neck exam: Present: normal inspection, full ROM. Absent: tenderness - Respiratory Respiratory exam: Present: normal lung sounds bilaterally. Absent: respiratory distress, wheezes, rales, chest wall tenderness, accessory muscle use, decreased breath sounds - Cardiovascular Cardiovascular Exam: Present: regular rate, normal rhythm, normal heart sounds - GI/Abdominal GI/Abdominal exam: Present: soft, tenderness (mildly tender in the suprapubic area), normal bowel sounds. Absent: guarding, rebound, rigid, hyperactive bowel sounds, hypoactive bowel sounds, organomegaly - Rectal Rectal exam: Present: deferred - Extremities Exam Extremities exam: Present: normal inspection, full ROM, normal capillary refill - Back Exam Back exam: Present: normal inspection, full ROM. Absent: tenderness, CVA tenderness (R), CVA tenderness (L), muscle spasm, paraspinal tenderness, vertebral tenderness - Neurological Exam Neurological exam: Present: alert, oriented X3, CN II-XII intact, normal gait, reflexes normal - Psychiatric Psychiatric exam: Present: normal affect - Skin Skin exam: Present: warm, dry, intact, normal color ED Course Vital Signs 07/11/18 21:12 Temperature 98.3 F Pulse Rate 94 H Respiratory 18 Rate Blood Pressure 105/80 O2 Sat by Pulse 100 Oximetry - Reevaluation(s) Reevaluation #1: 07/12/18 01:54 Patient is alert and oriented 3 and is not in distress with normal vital signs. Labs were drawn and patient if needed for pain and given normal saline 1 L IV bolus, and was treated for nausea and vomiting. Lab test results were reviewed and are unremarkable including urinalysis. On reevaluation, the patient's pain and nausea and vomiting resolved, and patient discharged home on pain medications and antiemetics, advised to follow-up with primary care physician or GI physician in 3-5 days for reevaluation. Patient was advised to return to the ED immediately if symptoms get worse. ED Medical Decision Making - Lab Data Result diagrams: 07/11/18 21:39 07/11/18 21:39 - Medical Decision Making Patient is alert and oriented 3 and is not in distress with normal vital signs. Labs were drawn and patient if needed for pain and given normal saline 1 L IV bolus, and was treated for nausea and vomiting. Lab test results were reviewed and are unremarkable including urinalysis. On reevaluation, the patient's pain and nausea and vomiting resolved, and patient discharged home on pain medications and antiemetics, advised to follow-up with primary care physician or GI physician in 3-5 days for reevaluation. Patient was advised to return to the ED immediately if symptoms get worse. - Differential Diagnosis Abdominal pain, Crohn's Flare, Nausea and vomiting, Acute UTI Critical care attestation.: If time is entered above; I have spent that time in minutes in the direct care of this critically ill patient, excluding procedure time. ED Disposition Clinical Impression: Nausea and vomiting in adult Abdominal pain Qualifiers: Abdominal location: lower abdomen, unspecified Qualified Code(s): R10.30 - Lower abdominal pain, unspecified Disposition: - TO HOME OR SELFCARE Is pt being admited?: No Does the pt Need Aspirin: No Condition: Stable Instructions: Abdominal Pain (ED), Acute Nausea and Vomiting (ED) Additional Instructions: Take medications include, drink plenty of fluids and follow-up with your primary care physician in 3-5 days for reevaluation. Return to the ED immediately if symptoms get worse. Prescriptions: traMADol [Ultram 50 MG tab] 50 mg PO Q6HR PRN #15 tablet PRN Reason: Pain Ondansetron [Zofran Odt] 4 mg PO Q6HR #20 tab.rapdis Referrals: ANNIE OLIVER MD [Primary Care Provider] - 3-5 Days Time of Disposition: 01:59 Print Language: UPPER SORBIAN
[2018-07-12 03:09] VITALS: BP 110/79
== END 2018-07-12 03:09 | disposition home or self-care (01) ==
LOC: ED 19:10
DX: R10.30 Lower abdominal pain, unspecified (principal); R11.2 Nausea with vomiting, unspecified; Z88.6 Allergy status to analgesic agent; Z88.1 Allergy status to other antibiotic agents
CPT/HCPCS: 36415; 80053; 81001; 83690; 85025; 96361; 96374; 96375; 99283; J1200; J2270; J2405; J7030

== ENCOUNTER 2018-08-14 12:05 | Emergency (ER) | payer MEDICAID ==
--- NOTE | 2018-08-14 12:15 | Emergency Department Report ---
Blank Doc - Documentation Documentation: This is a 23-year-old female that presents with abdominal pain with nausea and vomiting with diarrhea. HX of Chron's. This initial assessment/diagnostic orders/clinical plan/treatment(s) is/are subject to change based on patient's health status, clinical progression and re-assessment by fellow clinical providers in the ED. Further treatment and workup at subsequent clinical providers discretion. Patient/guardians urged not to elope from the ED as their condition may be serious if not clinically assessed and managed. Initial orders include: 1- Patient sent to [facility] for further evaluation and treatment 2- labs 3- UA
[2018-08-14 13:06] LABS: Basophils # (Auto) 0.1 K/mm3 (0.0-0.1); Basophils % (Auto) 0.9 % (0.0-1.8); Eosinophils # (Auto) 0.4 K/mm3 (0.0-0.4); Eosinophils % (Auto) 5.9 % (0.0-4.3); Hematocrit 34.6 % (30.3-42.9); Hemoglobin 11.1 gm/dl (10.1-14.3); Lymphocytes # (Auto) 2.4 K/mm3 (1.2-5.4); Lymphocytes % (Auto) 36.7 % (13.4-35.0); Mean Corpuscular HGB Conc 32 % (30-34); Mean Corpuscular Volume 72 fl (79-97); Monocytes # (Auto) 0.8 K/mm3 (0.0-0.8); Monocytes % (Auto) 12.2 % (0.0-7.3); Platelet Count 403 K/mm3 (140-440); Red Blood Count 4.78 M/mm3 (3.65-5.03)
[2018-08-14 13:09] LABS: Red Cell Distribution Width 23.6 % (13.2-15.2)
[2018-08-14 13:29] LABS: Alanine Aminotransferase 8 units/L (7-56); Albumin 3.8 g/dL (3.9-5); BUN/Creatinine Ratio 10; Blood Urea Nitrogen 8 mg/dL (7-17); Calcium 9.3 mg/dL (8.4-10.2); Hemolysis Index 5
[2018-08-14 14:38] LABS: Bacteria,Urine 1+ /HPF (Negative); Bilirubin,Urine NEG (Negative); Blood,Urine NEG (Negative); Color,Urine Yellow (Yellow); Mucus,Urine FEW /HPF; Protein,Urine <15 mg/dL mg/dL (Negative); Urobilinogen,Urine < 2.0 mg/dL (<2.0)
[2018-08-14] MEDS ORDERED: BENTYL IM ONE (17:37)
[2018-08-14] MEDS ORDERED: ZOFRAN IV ONE (17:37)
[2018-08-14] MEDS ORDERED: NACL 0.9% 1000 ML 1,000 ML IV ONE (17:38)
[2018-08-14] MEDS ORDERED: BENADRYL IV ONE (17:42)
--- NOTE | 2018-08-14 17:43 | Emergency Department Report ---
ED Abdominal Pain HPI - General Chief Complaint: Abdominal Pain Stated Complaint: ABD PAIN/NAUSEA/VOMITTING Time Seen by Provider: 08/14/18 12:15 Source: patient Mode of arrival: Ambulatory Limitations: No Limitations - History of Present Illness Initial Comments: This is a 23-year-old [place]oth[place] female who presents to the emergency room with abdominal pain, nausea, vomiting, and back pain for several days. Past medical history of Crohn's disease with an ileostomy. Patient reports mucus bowel and ileostomy. She also complains of pruritus. Patient states she is currently taking a Remicade daily with no improvement of symptoms. MD Complaint: abdominal pain -: days(s) Location: diffuse Radiation: back Migration to: no migration Severity: severe Severity scale (0 -10): 9 Quality: cramping Consistency: constant Improves With: nothing Worsens With: eating Associated Symptoms: nausea, vomiting. denies: fever, chills, constipation, dysuria, hematemesis, hematochezia, melena, hematuria, anorexia, syncope - Related Data LMP Date: 07/29/18 Previous Rx's Medication Instructions Recorded Last Taken Type Dicyclomine [Bentyl] 20 mg PO QID PRN #20 tablet 03/14/18 Unknown Rx predniSONE [Prednisone] 50 mg PO DAILY #5 tablet 03/14/18 Unknown Rx traMADol [Ultram] 50 mg PO Q6HR PRN #7 tablet 03/14/18 Unknown Rx Dicyclomine [Bentyl] 20 mg PO QID PRN #20 tablet 05/11/18 Unknown Rx Ondansetron [Zofran Odt] 4 mg PO Q8HR PRN #20 tab.rapdis 05/11/18 Unknown Rx predniSONE [Prednisone] 50 mg PO DAILY #5 tablet 05/11/18 Unknown Rx Prednisone [predniSONE 10 mg 10 mg PO .TAPER #1 tab.ds.pk 06/04/18 Unknown Rx (6-Day Pack, 21 Tabs)] Promethazine [Phenergan] 25 mg PO Q6HR PRN #20 tab 06/04/18 Unknown Rx Ondansetron [Zofran Odt] 4 mg PO Q6HR #20 tab.rapdis 07/12/18 Unknown Rx traMADol [Ultram 50 MG tab] 50 mg PO Q6HR PRN #15 tablet 07/12/18 Unknown Rx Dicyclomine [Bentyl] 20 mg PO QID #20 tablet 08/14/18 Unknown Rx Ondansetron [Zofran Odt] 4 mg PO Q8HR PRN #20 tab.rapdis 08/14/18 Unknown Rx Prednisone [predniSONE 10 mg 10 mg PO .TAPER #1 tab.ds.pk 08/14/18 Unknown Rx (6-Day Pack, 21 Tabs)] Allergies Allergy/AdvReac Type Severity Reaction Status Date / Time ciprofloxacin [From Cipro] Allergy Unknown Verified 08/14/18 18:18 ibuprofen Allergy Unknown Verified 08/14/18 18:18 ketorolac [From Toradol] Allergy Unknown Verified 08/14/18 18:18 ED Review of Systems ROS: Stated complaint: ABD PAIN/NAUSEA/VOMITTING Other details as noted in HPI Constitutional: denies: chills, fever Respiratory: denies: cough, shortness of breath, wheezing Cardiovascular: denies: chest pain, palpitations Gastrointestinal: abdominal pain, nausea, vomiting. denies: diarrhea Genitourinary: denies: urgency, dysuria, discharge Musculoskeletal: back pain. denies: joint swelling, arthralgia Skin: pruritus. denies: rash, lesions Neurological: denies: headache, weakness, paresthesias Psychiatric: denies: anxiety, depression ED Past Medical Hx - Past Medical History Previous Medical History?: Yes Additional medical history: Chron's Disease - Surgical History Past Surgical History?: Yes Additional Surgical History: Ileostomy - Social History Smoking Status: Never Smoker Substance Use Type: None - Medications Home Medications: Home Medications Medication Instructions Recorded Confirmed Last Taken Type Dicyclomine [Bentyl] 20 mg PO QID PRN #20 tablet 03/14/18 Unknown Rx predniSONE [Prednisone] 50 mg PO DAILY #5 tablet 03/14/18 Unknown Rx traMADol [Ultram] 50 mg PO Q6HR PRN #7 tablet 03/14/18 Unknown Rx Dicyclomine [Bentyl] 20 mg PO QID PRN #20 tablet 05/11/18 Unknown Rx Ondansetron [Zofran Odt] 4 mg PO Q8HR PRN #20 tab.rapdis 05/11/18 Unknown Rx predniSONE [Prednisone] 50 mg PO DAILY #5 tablet 05/11/18 Unknown Rx Prednisone [predniSONE 10 mg 10 mg PO .TAPER #1 tab.ds.pk 06/04/18 Unknown Rx (6-Day Pack, 21 Tabs)] Promethazine [Phenergan] 25 mg PO Q6HR PRN #20 tab 06/04/18 Unknown Rx Ondansetron [Zofran Odt] 4 mg PO Q6HR #20 tab.rapdis 07/12/18 Unknown Rx traMADol [Ultram 50 MG tab] 50 mg PO Q6HR PRN #15 tablet 07/12/18 Unknown Rx Dicyclomine [Bentyl] 20 mg PO QID #20 tablet 08/14/18 Unknown Rx Ondansetron [Zofran Odt] 4 mg PO Q8HR PRN #20 tab.rapdis 08/14/18 Unknown Rx Prednisone [predniSONE 10 mg 10 mg PO .TAPER #1 tab.ds.pk 08/14/18 Unknown Rx (6-Day Pack, 21 Tabs)] ED Physical Exam - General Limitations: No Limitations General appearance: alert, in no apparent distress - Respiratory Respiratory exam: Present: normal lung sounds bilaterally. Absent: respiratory distress - Cardiovascular Cardiovascular Exam: Present: regular rate, normal rhythm. Absent: systolic murmur, diastolic murmur, rubs, gallop - GI/Abdominal GI/Abdominal exam: Present: soft, tenderness (right lower quadrant and left lower quadrant), guarding, normal bowel sounds, other (ileostomy to her right upper quadrant, beefy pink and nontender around.). Absent: distended, rebound, rigid - Back Exam Back exam: Present: normal inspection - Neurological Exam Neurological exam: Present: alert, oriented X3, normal gait - Psychiatric Psychiatric exam: Present: normal affect, normal mood - Skin Skin exam: Present: warm, dry, intact, normal color. Absent: rash ED Course Vital Signs 08/14/18 08/14/18 08/14/18 12:16 19:28 20:00 Temperature 97.8 F 98.3 F Pulse Rate 83 63 Respiratory 15 18 16 Rate Blood Pressure 104/74 105/70 O2 Sat by Pulse 100 100 Oximetry 08/14/18 20:41 Temperature Pulse Rate Respiratory 16 Rate Blood Pressure O2 Sat by Pulse Oximetry ED Medical Decision Making - Lab Data Result diagrams: 08/14/18 12:55 08/14/18 12:55 Lab Results 08/14/18 08/14/18 08/14/18 Range/Units 12:55 12:55 12:55 WBC 6.5 (4.5-11.0) K/mm3 RBC 4.78 (3.65-5.03) M/mm3 Hgb 11.1 (10.1-14.3) gm/dl Hct 34.6 (30.3-42.9) % MCV 72 L (79-97) fl MCH 23 L (28-32) pg MCHC 32 (30-34) % RDW 23.6 H (13.2-15.2) % Plt Count 403 (140-440) K/mm3 Lymph % (Auto) 36.7 H (13.4-35.0) % Burnet % (Auto) 12.2 H (0.0-7.3) % Eos % (Auto) 5.9 H (0.0-4.3) % Baso % (Auto) 0.9 (0.0-1.8) % Lymph # 2.4 (1.2-5.4) K/mm3 Burnet # 0.8 (0.0-0.8) K/mm3 Eos # 0.4 (0.0-0.4) K/mm3 Baso # 0.1 (0.0-0.1) K/mm3 Seg Neutrophils % 44.3 (40.0-70.0) % Seg Neutrophils # 2.9 (1.8-7.7) K/mm3 Sodium 139 (137-145) mmol/L Potassium 4.2 (3.6-5.0) mmol/L Chloride 103.6 (98-107) mmol/L Carbon Dioxide 22 (22-30) mmol/L Anion Gap 18 mmol/L BUN 8 (7-17) mg/dL Creatinine 0.8 (0.7-1.2) mg/dL Estimated GFR > 60 ml/min BUN/Creatinine Ratio 10 % Glucose 75 (65-100) mg/dL Calcium 9.3 (8.4-10.2) mg/dL Total Bilirubin 0.20 (0.1-1.2) mg/dL AST 16 (5-40) units/L ALT 8 (7-56) units/L Alkaline Phosphatase 78 (35-129) units/L Total Protein 7.8 (6.3-8.2) g/dL Albumin 3.8 L (3.9-5) g/dL Albumin/Globulin Ratio 1.0 % Lipase 29 (13-60) units/L HCG, Qual Negative (Negative) Urine Color (Yellow) Urine Turbidity (Clear) Urine pH (5.0-7.0) Ur Specific [place] (1.003-1.030) Urine Protein (Negative) mg/dL Urine Glucose (UA) (Negative) mg/dL Urine Ketones (Negative) mg/dL Urine Blood (Negative) Urine Nitrite (Negative) Urine Bilirubin (Negative) Urine Urobilinogen (<2.0) mg/dL Ur Leukocyte Esterase (Negative) Urine WBC (Auto) (0.0-6.0) /HPF Urine RBC (Auto) (0.0-6.0) /HPF U Epithel Cells (Auto) (0-13.0) /HPF Urine Bacteria (Auto) (Negative) /HPF Urine Mucus /HPF 08/14/18 Range/Units Unknown WBC (4.5-11.0) K/mm3 RBC (3.65-5.03) M/mm3 Hgb (10.1-14.3) gm/dl Hct (30.3-42.9) % MCV (79-97) fl MCH (28-32) pg MCHC (30-34) % RDW (13.2-15.2) % Plt Count (140-440) K/mm3 Lymph % (Auto) (13.4-35.0) % Burnet % (Auto) (0.0-7.3) % Eos % (Auto) (0.0-4.3) % Baso % (Auto) (0.0-1.8) % Lymph # (1.2-5.4) K/mm3 Burnet # (0.0-0.8) K/mm3 Eos # (0.0-0.4) K/mm3 Baso # (0.0-0.1) K/mm3 Seg Neutrophils % (40.0-70.0) % Seg Neutrophils # (1.8-7.7) K/mm3 Sodium (137-145) mmol/L Potassium (3.6-5.0) mmol/L Chloride (98-107) mmol/L Carbon Dioxide (22-30) mmol/L Anion Gap mmol/L BUN (7-17) mg/dL Creatinine (0.7-1.2) mg/dL Estimated GFR ml/min BUN/Creatinine Ratio % Glucose (65-100) mg/dL Calcium (8.4-10.2) mg/dL Total Bilirubin (0.1-1.2) mg/dL AST (5-40) units/L ALT (7-56) units/L Alkaline Phosphatase (35-129) units/L Total Protein (6.3-8.2) g/dL Albumin (3.9-5) g/dL Albumin/Globulin Ratio % Lipase (13-60) units/L HCG, Qual (Negative) Urine Color Yellow (Yellow) Urine Turbidity Slightly-cloudy (Clear) Urine pH 5.0 (5.0-7.0) Ur Specific [place] 1.013 (1.003-1.030) Urine Protein <15 mg/dl (Negative) mg/dL Urine Glucose (UA) Neg (Negative) mg/dL Urine Ketones Neg (Negative) mg/dL Urine Blood Neg (Negative) Urine Nitrite Neg (Negative) Urine Bilirubin Neg (Negative) Urine Urobilinogen < 2.0 (<2.0) mg/dL Ur Leukocyte Esterase Mod (Negative) Urine WBC (Auto) 2.0 (0.0-6.0) /HPF Urine RBC (Auto) 2.0 (0.0-6.0) /HPF U Epithel Cells (Auto) 12.0 (0-13.0) /HPF Urine Bacteria (Auto) 1+ (Negative) /HPF Urine Mucus Few /HPF - Radiology Data Radiology results: report reviewed CT DOSE LENGTH PRODUCT: 597 mGycm HISTORY: abdominal pain, hx chron's COMPARISONS: 03/14/2018. FINDINGS: Liver, spleen, pancreas and adrenal glands are within normal limits. Bilateral kidneys demonstrate uniform enhancement without hydronephrosis. Urinary bladder is partially filled with normal outlines. Aorta is of normal caliber. There is no free fluid or free air. Gallbladder is unremarkable. Small bowel loops are within normal limits. Right lower quadrant ostomy is noted. There is no evidence of any fluid collection. Significant amount of perirectal fat is again identified. Vertebral height is normal. IMPRESSION: No evidence of intestinal obstruction No evidence of fluid collection Right-sided ostomy - Medical Decision Making Patient was examined by me. Vitals are normal and patient is in no acute distress. Labs and CT abdomen and pelvis with contrast was obtained. All labs are unremarkable. The CT of the abdomen findings of no evidence of intestinal obstruction. No evidence of fluid collection. Right-sided ostomy. IV site obtained. Given normal saline, morphine, Zofran, Benadryl, and Bentyl. Patient will be treated with prednisone and Bentyl. Follow up with hone operator. Plan discussed with patient to discharge home and treat outpatient. He agrees with ER plan. Patient discharged home in stable condition. Follow up with PCP in 2-3 days. Critical care attestation.: If time is entered above; I have spent that time in minutes in the direct care of this critically ill patient, excluding procedure time. ED Disposition Clinical Impression: Acute Crohn's disease Qualifiers: Digestive disease complication type: without complication Qualified Code(s): K50.90 - Crohn's disease, unspecified, without complications Abdominal pain Qualifiers: Abdominal location: generalized Qualified Code(s): R10.84 - Generalized abdominal pain Disposition: TO HOME OR SELFCARE Is pt being admited?: No Does the pt Need Aspirin: No Condition: Stable Instructions: Abdominal Pain (ED), Crohn Disease (ED) Additional Instructions: Complete steroids as prescribed. Follow-up with her hone operator and primary care doctor. Prescriptions: Dicyclomine [Bentyl] 20 mg PO QID #20 tablet Prednisone [predniSONE 10 mg (6-Day Pack, 21 Tabs)] 10 mg PO .TAPER #1 tab.ds.pk Ondansetron [Zofran Odt] 4 mg PO Q8HR PRN #20 tab.rapdis PRN Reason: Nausea And Vomiting Referrals: ANNIE OLIVER MD [Primary Care Provider] - 3-5 Days [facility] [Provider Group] - 3-5 Days [facility] [Provider Group] - 3-5 Days [facility] [Outside] - 3-5 Days Forms: Work/School Release Form(ED) Time of Disposition: 21:11
[2018-08-14] MEDS ORDERED: BENTYL PO ONE (18:11)
[2018-08-14] MEDS ORDERED: BENTYL ONE (18:16)
[2018-08-14] MEDS ORDERED: MORPHINE IV ONE (19:26)
[2018-08-14] MEDS ORDERED: MORPHINE ONE (19:29)
[2018-08-14] MEDS ORDERED: NORCO 5/325 PO ONE (20:37)
--- NOTE | 2018-08-14 20:43 | Cat Scan Report ---
PROCEDURE: CT ABDOMEN PELVIS W CON TECHNIQUE: Computerized axial tomography of the abdomen and pelvis was performed after the administr ation of IV iodinated nonionic contrast. CT DOSE LENGTH PRODUCT: 597 mGycm HISTORY: abdominal pain, hx chron's COMPARISONS: 03/14/2018. FINDINGS: Liver, spleen, pancreas and adrenal glands are within normal limits. Bilateral kidneys demonstrate un iform enhancement without hydronephrosis. Urinary bladder is partially filled with normal outlines. A debra is of normal caliber. There is no free fluid or free air. Gallbladder is unremarkable. Small bow el loops are within normal limits. Right lower quadrant ostomy is noted. There is no evidence of any fluid collection. Significant amount of perirectal fat is again identified. Vertebral height is suad l. IMPRESSION: No evidence of intestinal obstruction No evidence of fluid collection Right-sided ostomy This document is electronically signed by Rusty Torres MD., August 14 2018 08:41:17 PM ET
[2018-08-14 21:58] VITALS: BP 110/64
== END 2018-08-14 21:58 | disposition home or self-care (01) ==
LOC: ED 12:05
DX: K50.90 Crohn's disease, unspecified, without complications (principal); Z88.1 Allergy status to other antibiotic agents; Z88.5 Allergy status to narcotic agent; Z93.2 Ileostomy status
CPT/HCPCS: 36415; 74177; 80053; 81001; 83690; 84703; 85025; 96361; 96374; 96375; 99284; J0500; J1200; J2270; J2405; J7030; Q9967

== ENCOUNTER 2018-09-18 23:49 | Emergency (ER) | payer MEDICAID ==
[2018-09-19 01:05] LABS: Hematocrit 32.5 % (30.3-42.9); Hemoglobin 10.4 gm/dl (10.1-14.3); Mean Corpuscular HGB Conc 32 % (30-34); Mean Corpuscular Volume 73 fl (79-97); Platelet Count 314 K/mm3 (140-440); Red Blood Count 4.43 M/mm3 (3.65-5.03)
[2018-09-19 01:06] LABS: Red Cell Distribution Width 22.6 % (13.2-15.2)
[2018-09-19 01:22] LABS: Calcium 8.8 mg/dL (8.4-10.2); Hemolysis Index 9
[2018-09-19 01:25] LABS: Bacteria,Urine 1+ /HPF (Negative); Bilirubin,Urine NEG (Negative); Blood,Urine NEG (Negative); Color,Urine Yellow (Yellow); Mucus,Urine FEW /HPF; Protein,Urine <15 mg/dL mg/dL (Negative); Urobilinogen,Urine < 2.0 mg/dL (<2.0)
[2018-09-19 01:28] LABS: BUN/Creatinine Ratio 8; Blood Urea Nitrogen 5 mg/dL (7-17)
[2018-09-19 01:31] LABS: HCG Qualitative,Urine Negative (Negative)
[2018-09-19] MEDS ORDERED: ZOFRAN IV ONE (02:45)
[2018-09-19] MEDS ORDERED: BENADRYL IV ONE (02:45)
[2018-09-19] MEDS ORDERED: MORPHINE IV ONE ×2 (02:45→04:27)
[2018-09-19] MEDS ORDERED: NACL 0.9% 1000 ML 1,000 ML IV ONE (02:45)
[2018-09-19] MEDS ORDERED: ROCEPHIN/NS 1 GM/50 ML 1 GM/50 ML BAG IV ONE (02:46)
--- NOTE | 2018-09-19 02:49 | Emergency Department Report ---
ED Abdominal Pain HPI - General Chief Complaint: Abdominal Pain Stated Complaint: CROHNS FLARE UP BACK AND ABD PAIN Time Seen by Provider: 09/19/18 02:39 Source: patient Mode of arrival: Ambulatory Limitations: No Limitations - History of Present Illness Initial Comments: Patient is a 23 years old female with history of Crohn's disease status post colostomy. Patient presented to the ER complaining of abdominal pain and back pain. Patient had multiple ER visits and multiple CT scan of the abdomen and pelvis was negative for results. Patient stated that symptoms started yesterday associated nausea and vomiting. Patient denied any fever or chills. MD Complaint: abdominal pain Severity scale (0 -10): 10 - Related Data Previous Rx's Medication Instructions Recorded Last Taken Type Dicyclomine [Bentyl] 20 mg PO QID PRN #20 tablet 03/14/18 Unknown Rx predniSONE [Prednisone] 50 mg PO DAILY #5 tablet 03/14/18 Unknown Rx traMADol [Ultram] 50 mg PO Q6HR PRN #7 tablet 03/14/18 Unknown Rx Dicyclomine [Bentyl] 20 mg PO QID PRN #20 tablet 05/11/18 Unknown Rx Ondansetron [Zofran Odt] 4 mg PO Q8HR PRN #20 tab.rapdis 05/11/18 Unknown Rx predniSONE [Prednisone] 50 mg PO DAILY #5 tablet 05/11/18 Unknown Rx Prednisone [predniSONE 10 mg 10 mg PO .TAPER #1 tab.ds.pk 06/04/18 Unknown Rx (6-Day Pack, 21 Tabs)] Promethazine [Phenergan] 25 mg PO Q6HR PRN #20 tab 06/04/18 Unknown Rx Ondansetron [Zofran Odt] 4 mg PO Q6HR #20 tab.rapdis 07/12/18 Unknown Rx traMADol [Ultram 50 MG tab] 50 mg PO Q6HR PRN #15 tablet 07/12/18 Unknown Rx Dicyclomine [Bentyl] 20 mg PO QID #20 tablet 08/14/18 Unknown Rx Ondansetron [Zofran Odt] 4 mg PO Q8HR PRN #20 tab.rapdis 08/14/18 Unknown Rx Prednisone [predniSONE 10 mg 10 mg PO .TAPER #1 tab.ds.pk 08/14/18 Unknown Rx (6-Day Pack, 21 Tabs)] Allergies Allergy/AdvReac Type Severity Reaction Status Date / Time ciprofloxacin [From Cipro] Allergy Unknown Verified 08/14/18 18:18 ibuprofen Allergy Unknown Verified 08/14/18 18:18 ketorolac [From Toradol] Allergy Unknown Verified 08/14/18 18:18 ED Review of Systems ROS: Stated complaint: CROHNS FLARE UP BACK AND ABD PAIN Other details as noted in HPI Comment: All other systems reviewed and negative Constitutional: denies: chills, fever Cardiovascular: denies: chest pain, palpitations Gastrointestinal: abdominal pain, nausea, vomiting, diarrhea. denies: constipation, hematemesis Genitourinary: frequency. denies: urgency, dysuria Musculoskeletal: back pain Neurological: denies: headache ED Past Medical Hx - Past Medical History Previous Medical History?: Yes Additional medical history: Chron's Disease - Surgical History Past Surgical History?: Yes Additional Surgical History: Ileostomy - Social History Smoking Status: Never Smoker - Medications Home Medications: Home Medications Medication Instructions Recorded Confirmed Last Taken Type Dicyclomine [Bentyl] 20 mg PO QID PRN #20 tablet 03/14/18 Unknown Rx predniSONE [Prednisone] 50 mg PO DAILY #5 tablet 03/14/18 Unknown Rx traMADol [Ultram] 50 mg PO Q6HR PRN #7 tablet 03/14/18 Unknown Rx Dicyclomine [Bentyl] 20 mg PO QID PRN #20 tablet 05/11/18 Unknown Rx Ondansetron [Zofran Odt] 4 mg PO Q8HR PRN #20 tab.rapdis 05/11/18 Unknown Rx predniSONE [Prednisone] 50 mg PO DAILY #5 tablet 05/11/18 Unknown Rx Prednisone [predniSONE 10 mg 10 mg PO .TAPER #1 tab.ds.pk 06/04/18 Unknown Rx (6-Day Pack, 21 Tabs)] Promethazine [Phenergan] 25 mg PO Q6HR PRN #20 tab 06/04/18 Unknown Rx Ondansetron [Zofran Odt] 4 mg PO Q6HR #20 tab.rapdis 07/12/18 Unknown Rx traMADol [Ultram 50 MG tab] 50 mg PO Q6HR PRN #15 tablet 07/12/18 Unknown Rx Dicyclomine [Bentyl] 20 mg PO QID #20 tablet 08/14/18 Unknown Rx Ondansetron [Zofran Odt] 4 mg PO Q8HR PRN #20 tab.rapdis 08/14/18 Unknown Rx Prednisone [predniSONE 10 mg 10 mg PO .TAPER #1 tab.ds.pk 08/14/18 Unknown Rx (6-Day Pack, 21 Tabs)] ED Physical Exam - General Limitations: No Limitations General appearance: alert, in no apparent distress - Head Head exam: Present: atraumatic, normocephalic, normal inspection - Eye Eye exam: Present: normal appearance - ENT ENT exam: Present: normal exam, normal orophraynx, mucous membranes moist - Neck Neck exam: Present: normal inspection, full ROM. Absent: tenderness, meningismus, lymphadenopathy, thyromegaly - Respiratory Respiratory exam: Present: normal lung sounds bilaterally - Cardiovascular Cardiovascular Exam: Present: regular rate, normal rhythm, normal heart sounds - GI/Abdominal GI/Abdominal exam: Present: soft, normal bowel sounds. Absent: distended, ten derness, guarding, rebound, rigid, organomegaly, mass, bruit, pulsatile mass - Extremities Exam Extremities exam: Present: normal inspection, full ROM, normal capillary refill - Back Exam Back exam: Present: normal inspection, full ROM. Absent: CVA tenderness (R), CVA tenderness (L) - Neurological Exam Neurological exam: Present: alert, oriented X3, CN II-XII intact - Skin Skin exam: Present: warm, intact, normal color ED Course Vital Signs 09/19/18 09/19/18 09/19/18 00:01 02:30 02:53 Temperature 98.2 F 98.5 F Pulse Rate 106 H 85 Respiratory 18 16 16 Rate Blood Pressure 115/76 Blood Pressure 105/86 [Left] O2 Sat by Pulse 97 100 Oximetry 09/19/18 04:06 Temperature Pulse Rate 91 H Respiratory 22 Rate Blood Pressure 120/73 Blood Pressure [Left] O2 Sat by Pulse Oximetry ED Medical Decision Making - Lab Data Result diagrams: 09/19/18 00:28 09/19/18 00:28 - Medical Decision Making Patient is a 23 years old female with history of Crohn's disease status post colostomy. Patient presented to the ER complaining of abdominal pain and back pain. Patient had multiple ER visits and multiple CT scan of the abdomen and pelvis was negative for results. Patient stated that symptoms started yesterday associated nausea and vomiting. Patient denied any fever or chills. Patient's symptoms is similar to previous. Patient received multiple CT abdomen and pelvis was negative results as discussed above. No need to order a CT abdo men and pelvis at this time. Patient found to have a UTI. Patient received Rocephin and discharged on Macrobid and advised to follow-up with her primary care physician in the next 2-3 days. Critical care attestation.: If time is entered above; I have spent that time in minutes in the direct care of this critically ill patient, excluding procedure time. ED Disposition Clinical Impression: Abdominal pain, UTI (urinary tract infection) Disposition: DC- TO HOME OR SELFCARE Is pt being admited?: No Condition: Stable Instructions: Abdominal Pain (ED), Urinary Tract Infection in Women (ED) Referrals: ANNIE OLIVER MD [Primary Care Provider] - 3-5 Days
[2018-09-19 04:18] VITALS: BP 120/73
== END 2018-09-19 05:16 | disposition home or self-care (01) ==
LOC: ED 23:49
DX: N39.0 Urinary tract infection, site not specified (principal); K50.90 Crohn's disease, unspecified, without complications; Z79.899 Other long term (current) drug therapy; Z98.890 Other specified postprocedural states; Z88.6 Allergy status to analgesic agent; Z88.1 Allergy status to other antibiotic agents
CPT/HCPCS: 36415; 80048; 81001; 81025; 85027; 87086; 96365; 96375; 96376; 99283; J0696; J1200; J2270; J2405; J7030

== ENCOUNTER 2018-10-04 12:55 | Emergency (ER) | payer MEDICAID ==
--- NOTE | 2018-10-04 13:25 | Emergency Department Report ---
Blank Doc - Documentation Documentation: This is a 23-year-old female that presents with Chrons flare-up. This initial assessment/diagnostic orders/clinical plan/treatment(s) is/are subject to change based on patient's health status, clinical progression and re- assessment by fellow clinical providers in the ED. Further treatment and workup at subsequent clinical providers discretion. Patient/guardians urged not to elope from the ED as their condition may be serious if not clinically assessed and managed. Initial orders include: 1- Patient sent to [facility] for further evaluation and treatment 2- labs 3- UA
[2018-10-04 14:00] LABS: Basophils % (Auto) 0.5 % (0.0-1.8); Eosinophils # (Auto) 0.5 K/mm3 (0.0-0.4); Eosinophils % (Auto) 7.6 % (0.0-4.3); Hematocrit 33.6 % (30.3-42.9); Hemoglobin 10.7 gm/dl (10.1-14.3); Lymphocytes # (Auto) 2.5 K/mm3 (1.2-5.4); Lymphocytes % (Auto) 34.8 % (13.4-35.0); Mean Corpuscular HGB Conc 32 % (30-34); Mean Corpuscular Volume 73 fl (79-97); Monocytes # (Auto) 0.7 K/mm3 (0.0-0.8); Monocytes % (Auto) 10.2 % (0.0-7.3); Platelet Count 428 K/mm3 (140-440); Red Blood Count 4.61 M/mm3 (3.65-5.03)
[2018-10-04 14:03] LABS: Red Cell Distribution Width 22.3 % (13.2-15.2)
[2018-10-04 14:45] LABS: Alanine Aminotransferase 9 units/L (7-56); Albumin 3.7 g/dL (3.9-5); BUN/Creatinine Ratio 5; Blood Urea Nitrogen 4 mg/dL (7-17); Calcium 9.1 mg/dL (8.4-10.2); Hemolysis Index 3
--- NOTE | 2018-10-04 16:06 | Emergency Department Report ---
HPI - General Chief Complaint: Abdominal Pain Time Seen by Provider: 10/04/18 13:24 - HPI HPI: PT COMES TO ER TODAY, VISIT NO 9 OF THE YEAR BECAUSE SHE CAN NOT GET TO HER MD IN [facility]. PT IS AMBULATORY AND NON TOXIC ON EXAM. SHE COMPLAINS OF HAVING BLOOD STREAKS IN HER BAG. SHE HAS NO N/V/D. THE STOOL IN THE BAG IS SOFT IT ALWAYS IS PER PT. PT DENIES FEVER CHILLS, DYSURIA, BACK PAIN. PMH CHRONES ON HOME MEDS PER GI MD ED Past Medical Hx - Past Medical History Previous Medical History?: Yes Additional medical history: Chron's Disease - Surgical History Past Surgical History?: Yes Additional Surgical History: Ileostomy - Family History Family history: no significant - Social History Smoking Status: Never Smoker Substance Use Type: None - Medications Home Medications: Home Medications Medication Instructions Recorded Confirmed Last Taken Type Dicyclomine [Bentyl] 20 mg PO QID #20 tablet 08/14/18 Unknown Rx ED Review of Systems ROS: Stated complaint: CROHNS FLARE/ ABD PAIN Other details as noted in HPI Comment: All other systems reviewed and negative Physical Exam - Physical Exam Vital Signs: Vital Signs 10/04/18 13:24 Temperature 98.3 F Pulse Rate 104 H Respiratory 18 Rate Blood Pressure 108/78 O2 Sat by Pulse 99 Oximetry Physical Exam: ALERT AND ORIENTED PLAYING ON IPAD DURING EXAM PT CONCERNED THAT SHE HAS SOME BLOOD STREAKS IN HER ILLEOSTOMY BAG SHE HAS BEEN HERE SEVERAL TIMES OVER THE PAST 6 MONTHS S1S2 LUNGS CTA ABD SNT ILLEOSTOMY WITH SOFT BROWN STOOL; NO BLOOD NOTED ED Course Vital Signs 10/04/18 13:24 Temperature 98.3 F Pulse Rate 104 H Respiratory 18 Rate Blood Pressure 108/78 O2 Sat by Pulse 99 Oximetry ED Medical Decision Making - Lab Data Result diagrams: 10/04/18 13:43 10/04/18 13:43 - Medical Decision Making Vital Signs 10/04/18 13:24 Temperature 98.3 F Pulse Rate 104 H Respiratory 18 Rate Blood Pressure 108/78 O2 Sat by Pulse 99 Oximetry Labs 10/04/18 10/04/18 10/04/18 13:43 13:43 13:43 WBC 7.1 RBC 4.61 Hgb 10.7 Hct 33.6 MCV 73 L MCH 23 L MCHC 32 RDW 22.3 H Plt Count 428 Lymph % (Auto) 34.8 [place] % (Auto) 10.2 H Eos % (Auto) 7.6 H Baso % (Auto) 0.5 Lymph # 2.5 Hayes # 0.7 Eos # 0.5 H Baso # 0.0 Seg Neutrophils % 46.9 Seg Neutrophils # 3.3 Sodium 143 Potassium 4.0 Chloride 107.3 H Carbon Dioxide 23 Anion Gap 17 BUN 4 L Creatinine 0.8 Estimated GFR > 60 BUN/Creatinine Ratio 5 Glucose 98 Calcium 9.1 Total Bilirubin 0.20 AST 14 ALT 9 Alkaline Phosphatase 74 Total Protein 7.7 Albumin 3.7 L Albumin/Globulin Ratio 0.9 Lipase 34 HCG, Qual Negative VSS. HR 90 ON EXAM. PT ON HER DICYCLOMINE AND RIMICAID SHE CAN NOT GET TO HER GI MD IN [facility] PT IS REQUESTING PAIN MEDS AND IRON INFUSIONS I'VE EXPLAINED TO HER THAT WE DO NOT MANAGE THE CHRONIC ISSUES OF HER DISEASE SHE HAS ASKED FOR A REFERRAL TO A LOCAL GI MD PT INITIALLY WAS OK WITH THE PLAN THEN THE RN CALLED ME TO ROOM. PT DOES NOT UNDERSTAND WHY WE DO NOT TREAT HER IN ER. SHE WANTS IRON LEVEL. I TOLD HER WE HAVE NEVER CHECKED HER IRON IN THE 9 TIMES SHE HAS BEEN IN ER THIS YEAR. I EXPLAINED THAT IS A SPECIALTY STUDY THAT HER ROUTINE DOCTOR WOULD FOLLOW. SHE STATES THEY WERE TRYING TO GET HER IRON INFUSIONS. I EXPLAINED TO HER THAT THAT IS NOT WHAT AN ER DOES; ANY ER. SHE HAS HER REMICAID AND HER DYCLOMINE MEDS. SHE DECLINED NEEDED REFILL. SHE DID ASK FOR PAIN MEDICATIONS AND I AGAIN INFORMED HER WE DO NOT TREAT CHRONIC PAIN. THE ENTIRE TIME WE WERE TALKING SHE WAS ON FACEBOOK ON HER IPAD. SHE STATED HER MOTHER WANTED ALL OF HER LABS FROM TODAY. I GAVE HER HER DC PAPERS WITH EACH OF THE ABOVE LABS WRITTEN DOWN FOR HER. I EXPLAINED EACH OF THE LABS AND EVEN GAVE HER THE LAST 5 VISIT HGB LEVELS TO SHOW HER THE TREND. PT HAS HAD CT SCANS IN FEB/APRIL AND JULY OF THIS YEAR- ALL WITH NO CHANGE. I EMPHASIZED TO PT THAT HER CARE AND THE CARE SHE NEEDS IS FROM A MD WHO SPECIALIZ ES IN HER DISEASE. ALTHOUGH PT UPSET SHE LEFT THE ER. DC HOME WITH REFERRALS AMBULATORY, NON TOXIC AND TAKING PO - Differential Diagnosis RO HYPOVOLEMIA/GIB Critical care attestation.: If time is entered above; I have spent that time in minutes in the direct care of this critically ill patient, excluding procedure time. ED Disposition Clinical Impression: Crohn disease Disposition: DC- TO HOME OR SELFCARE Is pt being admited?: No Does the pt Need Aspirin: No Condition: Stable Instructions: Abdominal Pain (ED) Additional Instructions: TAKE YOUR HOME MEDS PER ROUTINE DIET AND ACTIVITY TOLERATED REFERRAL WE DISCUSSED BELOW Referrals: [facility] MD LETICIA [Primary Care Provider] - 3-5 Days BRANDEN TAI MD [Staff Physician] - 3-5 Days FRANKLIN OWENS MD [Staff Physician] - 3-5 Days JESSENIA OLGUIN MD [Staff Physician] - 3-5 Days Time of Disposition: 16:07
[2018-10-04 16:31] VITALS: BP 108/73
== END 2018-10-04 16:31 | disposition home or self-care (01) ==
LOC: ED 12:55
DX: K50.90 Crohn's disease, unspecified, without complications (principal); Z93.2 Ileostomy status; Z79.899 Other long term (current) drug therapy; Z88.1 Allergy status to other antibiotic agents; Z88.4 Allergy status to anesthetic agent; Z88.8 Allergy status to other drugs, medicaments and biological substances
CPT/HCPCS: 36415; 80053; 83690; 84703; 85025

== ENCOUNTER 2018-11-08 23:14 | Emergency (ER) | payer MEDICAID ==
[2018-11-08 23:31] VITALS: BP 107/69
[2018-11-09 00:02] LABS: Hematocrit 29.4 % (30.3-42.9); Hemoglobin 9.4 gm/dl (10.1-14.3); Mean Corpuscular HGB Conc 32 % (30-34); Mean Corpuscular Volume 72 fl (79-97); Platelet Count 436 K/mm3 (140-440); Red Blood Count 4.07 M/mm3 (3.65-5.03)
[2018-11-09 00:18] LABS: Alanine Aminotransferase 8 units/L (7-56); Albumin 3.4 g/dL (3.9-5); BUN/Creatinine Ratio 5; Blood Urea Nitrogen 3 mg/dL (7-17); Calcium 8.8 mg/dL (8.4-10.2); Hemolysis Index 0
[2018-11-09 00:21] LABS: Red Cell Distribution Width 21.2 % (13.2-15.2)
[2018-11-09 02:14] LABS: Bacteria,Urine 1+ /HPF (Negative); Bilirubin,Urine NEG (Negative); Blood,Urine NEG (Negative); Color,Urine Yellow (Yellow); Mucus,Urine 1+ /HPF; Protein,Urine <15 mg/dL mg/dL (Negative); Urobilinogen,Urine < 2.0 mg/dL (<2.0)
--- NOTE | 2018-11-09 02:29 | Emergency Department Report ---
ED Abdominal Pain HPI - General Chief Complaint: Abdominal Pain Stated Complaint: CROHNS DISEASE,PELVIC,BACK AND MOUTH PAIN Time Seen by Provider: 11/09/18 02:22 Source: patient Mode of arrival: Ambulatory Limitations: No Limitations - History of Present Illness Initial Comments: Cierra is a 23 yo female with hx of Crohn's disease and ileostomy who presents with abdominal pain for 3 days. She was recently admitted for sepsis at outside [facility]. She is currently taking Remicade ciprofloxacin. She is followed by a new GI doctor Dr. Rankin. She ran out of Percocet tablets since recent discharge. She denies fever. Denies vomiting. MD Complaint: abdominal pain -: Gradual, days(s) (3) Location: diffuse Severity scale (0 -10): 8 Quality: aching Consistency: constant Improves With: nothing Worsens With: nothing Context: other (hx of Crohn') Associated Symptoms: nausea, vomiting - Related Data Previous Rx's Medication Instructions Recorded Last Taken Type Dicyclomine [Bentyl] 20 mg PO QID #20 tablet 08/14/18 Unknown Rx Ondansetron [Zofran Odt] 4 mg PO Q8HR PRN #10 tab.rapdis 11/09/18 Unknown Rx cephALEXin [Keflex] 500 mg PO Q6HR 7 Days #28 capsule 11/09/18 Unknown Rx oxyCODONE /ACETAMINOPHEN [Percocet 1 tab PO Q6HR PRN #10 tablet 11/09/18 Unknown Rx 5/325] Allergies Allergy/AdvReac Type Severity Reaction Status Date / Time ciprofloxacin [From Cipro] Allergy Unknown Verified 08/14/18 18:18 ibuprofen Allergy Unknown Verified 08/14/18 18:18 ketorolac [From Toradol] Allergy Unknown Verified 08/14/18 18:18 ED Review of Systems ROS: Stated complaint: CROHNS DISEASE,PELVIC,BACK AND MOUTH PAIN Other details as noted in HPI Comment: All other systems reviewed and negative Constitutional: malaise. denies: fever Gastrointestinal: abdominal pain, nausea ED Past Medical Hx - Past Medical History Previous Medical History?: Yes Additional medical history: Chron's Disease - Surgical History Past Surgical History?: Yes Additional Surgical History: Ileostomy - Social History Smoking Status: Never Smoker Substance Use Type: None - Medications Home Medications: Home Medications Medication Instructions Recorded Confirmed Last Taken Type Dicyclomine [Bentyl] 20 mg PO QID #20 tablet 08/14/18 Unknown Rx Ondansetron [Zofran Odt] 4 mg PO Q8HR PRN #10 tab.rapdis 11/09/18 Unknown Rx cephALEXin [Keflex] 500 mg PO Q6HR 7 Days #28 capsule 11/09/18 Unknown Rx oxyCODONE /ACETAMINOPHEN [Percocet 1 tab PO Q6HR PRN #10 tablet 11/09/18 Unknown Rx 5/325] ED Physical Exam - General Limitations: No Limitations General appearance: alert, in no apparent distress - Head Head exam: Present: atraumatic, normocephalic - Eye Eye exam: Present: normal appearance - ENT ENT exam: Present: mucous membranes moist - Neck Neck exam: Present: normal inspection - Respiratory Respiratory exam: Present: normal lung sounds bilaterally. Absent: respiratory distress, wheezes, rales, rhonchi - Cardiovascular Cardiovascular Exam: Present: regular rate, normal rhythm, normal heart sounds. Absent: systolic murmur, diastolic murmur, rubs, gallop - GI/Abdominal GI/Abdominal exam: Present: soft, normal bowel sounds. Absent: distended, tenderness, guarding, rebound - Extremities Exam Extremities exam: Present: normal inspection - Back Exam Back exam: Present: normal inspection - Neurological Exam Neurological exam: Present: alert, oriented X3 - Psychiatric Psychiatric exam: Present: normal affect, normal mood - Skin Skin exam: Present: warm, dry, intact, normal color. Absent: rash ED Course Vital Signs 11/08/18 23:28 Temperature 97.8 F Pulse Rate 110 H Respiratory 18 Rate Blood Pressure 107/69 O2 Sat by Pulse 99 Oximetry ED Medical Decision Making - Lab Data Result diagrams: 11/08/18 23:33 11/08/18 23:33 Laboratory Results - last 24 hr 11/08/18 11/08/18 11/08/18 23:33 23:33 23:33 WBC 8.9 RBC 4.07 Hgb 9.4 L Hct 29.4 L MCV 72 L MCH 23 L MCHC 32 RDW 21.2 H Plt Count 436 [place] % (Auto) [place] Former Seg Neutrophils % [place] Former Sodium 141 Potassium 4.1 Chloride 104.4 Carbon Dioxide 25 Anion Gap 16 BUN 3 L Creatinine 0.6 L Estimated GFR > 60 BUN/Creatinine Ratio 5 Glucose 81 Calcium 8.8 Total Bilirubin 0.20 AST 20 ALT 8 Alkaline Phosphatase 62 Total Protein 7.5 Albumin 3.4 L Albumin/Globulin Ratio 0.8 HCG, Qual Negative Urine Color Urine Turbidity Urine pH Ur Specific Tea Urine Protein Urine Glucose (UA) Urine Ketones Urine Blood Urine Nitrite Urine Bilirubin Urine Urobilinogen Ur Leukocyte Esterase Urine WBC (Auto) Urine RBC (Auto) U Epithel Cells (Auto) Urine Bacteria (Auto) Urine WBC Clumps Ur Transition Epith Cell Urine Mucus 11/09/18 01:25 WBC RBC Hgb Hct MCV MCH MCHC RDW Plt Count [place] % (Auto) Seg Neutrophils % Sodium Potassium Chloride Carbon Dioxide Anion Gap BUN Creatinine Estimated GFR BUN/Creatinine Ratio Glucose Calcium Total Bilirubin AST ALT Alkaline Phosphatase Total Protein Albumin Albumin/Globulin Ratio HCG, Qual Urine Color Yellow Urine Turbidity Cloudy Urine pH 5.0 Ur Specific Tea 1.013 Urine Protein <15 mg/dl Urine Glucose (UA) Neg Urine Ketones Neg Urine Blood Neg Urine Nitrite Neg Urine Bilirubin Neg Urine Urobilinogen < 2.0 Ur Leukocyte Esterase Lg Urine WBC (Auto) 157.0 H Urine RBC (Auto) 12.0 U Epithel Cells (Auto) 16.0 H Urine Bacteria (Auto) 1+ Urine WBC Clumps 2+ Ur Transition Epith Cell 3 Urine Mucus 1+ - Medical Decision Making Cierra presents with abdominal pain after recent admission at OSH. No fever. Normal WBC. +UTI on UA. SHe is currently taking ciprofloxacin according to her report although she has allergy listed here in our EMR. No evidence of peritonitis or sepsis on my examination I encouraged her to continue treatment as prescribed on her discharge plan. I have provided 10 tablet prescription of Percocet. Critical care attestation.: If time is entered above; I have spent that time in minutes in the direct care of this critically ill patient, excluding procedure time. ED Disposition Clinical Impression: Crohns disease, UTI (urinary tract infection) Disposition: -01 TO HOME OR SELFCARE Is pt being admited?: No Does the pt Need Aspirin: No Condition: Stable Instructions: Abdominal Pain (ED), Urinary Tract Infection in Women (ED) Prescriptions: cephALEXin [Keflex] 500 mg PO Q6HR 7 Days #28 capsule oxyCODONE /ACETAMINOPHEN [Percocet 5/325] 1 tab PO Q6HR PRN #10 tablet PRN Reason: Pain Ondansetron [Zofran Odt] 4 mg PO Q8HR PRN #10 tab.rapdis PRN Reason: Nausea Referrals: PRIMARY CARE, [Primary Care Provider] - 3-5 Days
[2018-11-09 05:56] LABS: Anisocytosis 1+; Band Neutrophils # (Manual) 0.1 K/mm3; Total Cells Counted 100
[2018-11-09 05:57] LABS: Platelet Estimate Consistent w Auto
== END 2018-11-09 02:53 | disposition home or self-care (01) ==
LOC: ED 23:14
DX: K50.90 Crohn's disease, unspecified, without complications (principal); N39.0 Urinary tract infection, site not specified; Z88.1 Allergy status to other antibiotic agents; Z88.5 Allergy status to narcotic agent; Z93.2 Ileostomy status; Z79.899 Other long term (current) drug therapy
CPT/HCPCS: 36415; 80053; 81001; 84703; 85007; 85025; 99283

== ENCOUNTER 2018-12-18 09:18 | Emergency (ER) | payer MEDICAID ==
[2018-12-18] MEDS ORDERED: ZOFRAN IV ONE ×2 (10:05→11:21)
[2018-12-18] MEDS ORDERED: MORPHINE IV ONE ×2 (10:05→11:22)
[2018-12-18] MEDS ORDERED: NACL 0.9% 1000 ML 1,000 ML IV ONE (10:38)
[2018-12-18 10:47] LABS: Hematocrit 31.9 % (30.3-42.9); Hemoglobin 10.1 gm/dl (10.1-14.3); Mean Corpuscular HGB Conc 32 % (30-34); Mean Corpuscular Volume 72 fl (79-97); Platelet Count 411 K/mm3 (140-440); Red Blood Count 4.44 M/mm3 (3.65-5.03); Red Cell Distribution Width 19.6 % (13.2-15.2)
[2018-12-18 10:56] LABS: INR 1.02 (0.87-1.13)
[2018-12-18 10:57] LABS: Partial Thromboplastin Time 25.5 Sec. (24.2-36.6)
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
[2018-12-18] MEDS ORDERED: SOLU-Medrol IV ONE (11:17)
[2018-12-18 11:30] LABS: Alanine Aminotransferase 11 units/L (7-56); Albumin 3.8 g/dL (3.9-5); BUN/Creatinine Ratio 10; Blood Urea Nitrogen 7 mg/dL (7-17); Calcium 8.9 mg/dL (8.4-10.2); Hemolysis Index 5
[2018-12-18 13:05] LABS: HCG Qualitative,Urine Negative (Negative)
[2018-12-18 13:08] LABS: Bilirubin,Urine NEG (Negative); Blood,Urine NEG (Negative); Color,Urine Straw (Yellow); Protein,Urine <15 mg/dL mg/dL (Negative); Urobilinogen,Urine < 2.0 mg/dL (<2.0)
[2018-12-18 13:36] LABS: Band Neutrophils # (Manual) 0.1 K/mm3; Hypochromasia 1+; Platelet Estimate Consistent w Auto; Target Cells Few; Total Cells Counted 100
--- NOTE | 2018-12-18 14:06 | Cat Scan Report ---
CT ABDOMEN AND PELVIS WITH CONTRAST INDICATION: Acute lower abdominal pain with bloody stools. History of Crohn's disease. COMPARISON: CT abdomen and pelvis with contrast from 08/14/2018. TECHNIQUE: Axial, coronal and sagittal CT imaging of the abdomen and pelvis was performed after inje ction of 100 mL Omnipaque [address] scans at this location are performed using CT dose re duction for ALARA by means of automated exposure control. FINDINGS: LOWER CHEST: No significant abnormality. LIVER: No significant abnormality. BILIARY: No significant abnormality. PANCREAS: No significant abnormality. SPLEEN: No significant abnormality. ADRENALS: No significant abnormality. KIDNEYS AND URETERS: No significant abnormality. GI TRACT: No significant abnormality of the stomach is identified. There is an unremarkable appearing right lower quadrant ileostomy. No acute abnormality is seen along the small bowel. Surgical changes are noted along the rectum. Nonspecific fluid is seen throughout the colon without an additional acu te abnormality. The appendix is unremarkable as visualized. PERITONEUM: No free fluid. No free air. No fluid collection. LYMPH NODES: No significant adenopathy. VASCULATURE: No significant abnormality. URINARY BLADDER: No significant abnormality. REPRODUCTIVE ORGANS: A right ovarian cyst measures 3.3 cm. No additional significant abnormality. ADDITIONAL FINDINGS: None. SKELETAL SYSTEM: No significant abnormality. IMPRESSION: 1. No acute abnormality of the abdomen or pelvis. 2. Right ovarian cyst measuring 3.3 cm. Signer Name: Jean Arnett MD Signed: 12/18/2018 2:02 PM Workstation Name: [id number]
[2018-12-18] MEDS ORDERED: NORCO 5/325 PO ONE (15:46)
[2018-12-18] MEDS ORDERED: ZOFRAN ODT PO ONE (15:46)
[2018-12-18 16:44] VITALS: BP 111/80
== END 2018-12-18 16:28 | disposition home or self-care (01) ==
LOC: ED 09:18
DX: K92.1 Melena (principal); R82.81 Pyuria; R10.30 Lower abdominal pain, unspecified; K50.90 Crohn's disease, unspecified, without complications; Z88.1 Allergy status to other antibiotic agents; Z88.6 Allergy status to analgesic agent
CPT/HCPCS: 36415; 74177; 80053; 81001; 81025; 83690; 85007; 85025; 85610; 85730; 96361; 96374; 96375; 96376; 99284; J2270; J2405; J2930; J7030; Q9967; Q0162

== ENCOUNTER 2019-12-05 13:32 | Emergency (ER) | payer MEDICAID ==
--- NOTE | 2019-12-05 14:17 | Emergency Department Report ---
Blank Doc - Documentation Documentation: 24-year-old female that presents with headache, body aches, and weakness. Oz milian on the 11-11. This initial assessment/diagnostic orders/clinical plan/treatment(s) is/are subject to change based on patient's health status, clinical progression and re- assessment by fellow clinical providers in the ED. Further treatment and workup at subsequent clinical providers discretion. Patient/guardians urged not to elope from the ED as their condition may be serious if not clinically assessed and managed. Initial orders include: 1- Patient sent to ED for further evaluation and treatment 2- labs 3- UA
[2019-12-05 14:52] LABS: Basophils % (Auto) 0.4 % (0.0-1.8); Eosinophils # (Auto) 0.6 K/mm3 (0.0-0.4); Eosinophils % (Auto) 5.5 % (0.0-4.3); Hematocrit 31.3 % (30.3-42.9); Hemoglobin 10.6 gm/dl (10.1-14.3); Lymphocytes # (Auto) 2.5 K/mm3 (1.2-5.4); Lymphocytes % (Auto) 23.5 % (13.4-35.0); Mean Corpuscular HGB Conc 34 % (30-34); Mean Corpuscular Volume 78 fl (79-97); Monocytes # (Auto) 1.4 K/mm3 (0.0-0.8); Monocytes % (Auto) 13.3 % (0.0-7.3); Platelet Count 434 K/mm3 (140-440); Red Blood Count 4.03 M/mm3 (3.65-5.03); Red Cell Distribution Width 19.7 % (13.2-15.2)
[2019-12-05 15:23] LABS: Alanine Aminotransferase 9 units/L (7-56); Albumin 3.4 g/dL (3.9-5); Blood Urea Nitrogen 4 mg/dL (7-17); Calcium 9.1 mg/dL (8.4-10.2); Hemolysis Index 4
[2019-12-05 15:25] LABS: BUN/Creatinine Ratio 7
[2019-12-05 17:43] LABS: HCG Qualitative,Urine Negative (Negative)
[2019-12-05 17:45] LABS: Bacteria,Urine 1+ /HPF (Negative); Bilirubin,Urine NEG (Negative); Blood,Urine LG (Negative); Color,Urine Yellow (Yellow); Mucus,Urine FEW /HPF; Urobilinogen,Urine < 2.0 mg/dL (<2.0)
[2019-12-05] MEDS ORDERED: ONDANSETRON 4 MG/2 ML INJ IV ONE (18:06)
[2019-12-05] MEDS ORDERED: SODIUM CHLORIDE 0.9% 1000 ML 1,000 ML IV ONE (18:06)
[2019-12-05] MEDS ORDERED: ACETAMINOPHEN 325 MG TAB PO ONE (18:07)
[2019-12-05] MEDS ORDERED: dexAMETHasone 20 MG/5 ML VIAL IV ONE (18:09)
--- NOTE | 2019-12-05 18:12 | Emergency Department Report ---
<COLIN RUBIO - Last Filed: 12/05/19 18:08> ED General Adult HPI - General Chief complaint: Nausea/Vomiting/Diarrhea Stated complaint: BAD HEADACHES/PAIN Time Seen by Provider: 12/05/19 14:16 Source: patient Mode of arrival: Ambulatory Limitations: No Limitations - History of Present Illness Initial comments: 24-year-old -[place] female presents to the emergency room complaining of headache, nausea and vomiting. Patient reports that she had recently delivered by on 11/12/2019 and has had a headache since. Patient denies any vaginal bleeding but does admit to hematuria. Patient is 4 para 4. Patient denies any urinary frequency urinary dysuria no fever no chills no history of headaches. Patient does have a history of Crohn's disease and reports she has been off of her Remicade for almost a year. Patient states she needs her prednisone. Patient states that she gets sharp pains to her ostomy that is intermittent. Patient has a primary GI doctor which is Dr. Neeta Lin and her next [facility] appointment is December 20 at [facility]. Patient reports she has been taking Tylenol which has not helped. She states she started having sores to her mouth and her bottom. Onset/Timin -: week(s) Location: head, abdomen Severity scale (0 -10): 7 Consistency: intermittent Improves with: none Worsens with: none Associated Symptoms: headaches, nausea/vomiting. denies: chest pain, cough, fever/chills Treatments Prior to Arrival: other (Tylenol this morning) - Related Data Home Medications Medication Instructions Recorded Confirmed Last Taken inFLIXimab (NF) [Remicade (Nf)] 0 mg IV QMONTH 12/18/18 12/18/18 11/15/18 Previous Rx's Medication Instructions Recorded Last Taken Type Sulfamethoxazole/Trimethoprim 1 each PO BID 3 Days #6 tablet 12/18/18 Unknown Rx [Bactrim DS TAB] predniSONE [Deltasone] 10 mg PO QDAY 5 Days #5 tab 12/18/18 Unknown Rx Butalb/Acetamin/Caff 50-325-40 1 - 2 tab PO Q6HR PRN #15 tab 12/05/19 Unknown Rx [Fioricet 50-325-40] Ondansetron [Zofran ODT TAB] 4 mg PO Q8HR PRN #20 tab.rapdis 12/05/19 Unknown Rx cephALEXin [Keflex] 500 mg PO Q6HR #40 capsule 12/05/19 Unknown Rx Allergies Allergy/AdvReac Type Severity Reaction Status Date / Time ciprofloxacin [From Cipro] Allergy Unknown Verified 08/14/18 18:18 ibuprofen Allergy Unknown Verified 08/14/18 18:18 ketorolac [From Toradol] Allergy Unknown Verified 08/14/18 18:18 ED Review of Systems Comment: All other systems reviewed and negative ED Past Medical Hx - Past Medical History Previous Medical History?: Yes Additional medical history: Chron's Disease - Surgical History Past Surgical History?: Yes Additional Surgical History: Ileostomy - Social History Smoking Status: Never Smoker Substance Use Type: None - Medications Home Medications: Home Medications Medication Instructions Recorded Confirmed Last Taken Type Sulfamethoxazole/Trimethoprim 1 each PO BID 3 Days #6 tablet 12/18/18 Unknown Rx [Bactrim DS TAB] inFLIXimab (NF) [Remicade (Nf)] 0 mg IV QMONTH 12/18/18 12/18/18 11/15/18 History predniSONE [Deltasone] 10 mg PO QDAY 5 Days #5 tab 12/18/18 Unknown Rx Butalb/Acetamin/Caff 50-325-40 1 - 2 tab PO Q6HR PRN #15 tab 12/05/19 Unknown Rx [Fioricet 50-325-40] Ondansetron [Zofran ODT TAB] 4 mg PO Q8HR PRN #20 tab.rapdis 12/05/19 Unknown Rx cephALEXin [Keflex] 500 mg PO Q6HR #40 capsule 12/05/19 Unknown Rx ED Physical Exam - General Limitations: No Limitations General appearance: alert, in no apparent distress - Head Head exam: Present: atraumatic, normocephalic - Eye Eye exam: Present: normal appearance - ENT ENT exam: Present: mucous membranes moist - Neck Neck exam: Present: normal inspection, full ROM - Respiratory Respiratory exam: Present: normal lung sounds bilaterally. Absent: respiratory distress - Cardiovascular Cardiovascular Exam: Present: tachycardia - GI/Abdominal GI/Abdominal exam: Present: soft, tenderness (Suprapubic and around her ostomy to the right middle quadrant.), normal bowel sounds, other (Ostomy is present stoma is pink stool is liquid reddish). Absent: distended - Back Exam Back exam: Present: normal inspection, full ROM. Absent: tenderness - Neurological Exam Neurological exam: Present: alert, oriented X3, normal gait - Psychiatric Psychiatric exam: Present: normal affect, normal mood - Skin Skin exam: Present: warm, dry, intact, normal color. Absent: rash ED Medical Decision Making - Lab Data Result diagrams: 12/05/19 14:44 12/05/19 14:44 ED Disposition Clinical Impression: Nausea and vomiting in adult patient, Acute urinary tract infection Tension type headache Qualifiers: Headache chronicity pattern: acute headache Intractability: not intractable Qualified Code(s): G44.209 - Tension-type headache, unspecified, not intractable Disposition: - TO HOME OR SELFCARE Condition: Stable Instructions: Acute Nausea and Vomiting (ED), Urinary Tract Infection in Women (ED) Additional Instructions: Take medication with food, drink plenty of fluids and follow-up with your primary care physician or [facility] physician in 5 to 7 days for reevaluation. Return to the ED immediately if symptoms get worse. Prescriptions: Butalb/Acetamin/Caff 50-325-40 [Fioricet 50-325-40] 1 - 2 tab PO Q6HR PRN #15 tab PRN Reason: Headache cephALEXin [Keflex] 500 mg PO Q6HR #40 capsule Ondansetron [Zofran ODT TAB] 4 mg PO Q8HR PRN #20 tab.rapdis PRN Reason: Nausea Referrals: [facility] [Provider Group] - 7-10 days Print Language: ITALIAN <SHASHI GARNICA - Last Filed: 12/05/19 22:46> ED Review of Systems ROS: Stated complaint: BAD HEADACHES/PAIN Other details as noted in HPI ED Course Vital Signs 12/05/19 12/05/19 14:16 19:58 Temperature 99.2 F Pulse Rate 106 H 94 H Respiratory 20 16 Rate Blood Pressure 145/98 Blood Pressure 118/82 [Left] O2 Sat by Pulse 100 Oximetry ED Medical Decision Making - Lab Data Result diagrams: 12/05/19 14:44 12/05/19 14:44 - Radiology Data Findings [facility] [address] [place] [address] Cat Scan Report Signed Patient: MANUEL FARRIS MR#: [id number] : 1995 Acct:[id number] Age/Sex: 24 / F ADM Date: 12/05/19 Loc: ED Attending Dr: Ordering Physician: CHANCE GARCÍA Date of Service: 12/05/19 Procedure(s): CT head/brain wo con Accession Number(s): [id number] cc: CHANCE GARCÍA CT head/brain wo con INDICATION: headache TECHNIQUE: Routine CT head without contrast. All CT scans at this location are performed using CT dose reduction for ALARA by means of automated exposure control. COMPARISON: None. FINDINGS: BRAIN / INTRACRANIAL CONTENTS: No acute hemorrhage, mass effect, midline shift, or hydrocephalus. No appreciable acute large territorial or lacunar infarct. No chronic infarct or focal atrophy. Normal brain volume and ventricular/sulcal size for age. ORBITS: No significant abnormality of visualized orbits. SINUSES / MASTOIDS: No significant abnormality of visualized sinuses and mastoid air cells. ADDITIONAL FINDINGS: None. IMPRESSION: 1. No acute intracranial abnormality. Signer Name: Marcel Santana MD Signed: 12/05/2019 7:20 PM Workstation Name: [id number] Transcribed By: BONNIE Dictated By: Marcel Santana MD Electronically Authenticated By: Marcel Santana MD Signed Date/Time: 12/05/191919 DD/ 18 TD/TT: - Medical Decision Making I assumed care of the patient from Ms. Montano JAYME at shift change at 2200 hrs. Patient had presented to the ED with intractable nausea and vomiting and headache persistently for the last 3 days. Patient is 3 weeks from a . Lab test results were reviewed and are all nonactionable except urinalysis which showed significant urinary tract infection. The head CT scan without contrast showed no acute intracranial abnormalities or hemorrhage. Based on the vital signs and lab test results, the patient unlikely has an underlying preeclampsia based on these findings. Patient was treated in the ED for pain and also given antiemetics and antibiotics in the ED. On reevaluation, patient's pain is well controlled with medication, nausea and vomiting is also well controlled and patient will discharge home on medication including anti biotics and antiemetics. - Differential Diagnosis Preeclampsia; Ecclampsia; UTI; Dehydration Critical care attestation.: If time is entered above; I have spent that time in minutes in the direct care of this critically ill patient, excluding procedure time. ED Disposition Is pt being admited?: No Does the pt Need Aspirin: No Time of Disposition: 22:37
--- NOTE | 2019-12-05 19:25 | Cat Scan Report ---
CT head/brain wo con INDICATION: headache TECHNIQUE: Routine CT head without contrast. All CT scans at this location are performed using CT dos e reduction for ALARA by means of automated exposure control. COMPARISON: None. FINDINGS: BRAIN / INTRACRANIAL CONTENTS: No acute hemorrhage, mass effect, midline shift, or hydrocephalus. No appreciable acute large territorial or lacunar infarct. No chronic infarct or focal atrophy. Normal b rain volume and ventricular/sulcal size for age. ORBITS: No significant abnormality of visualized orbits. SINUSES / MASTOIDS: No significant abnormality of visualized sinuses and mastoid air cells. ADDITIONAL FINDINGS: None. IMPRESSION: 1. No acute intracranial abnormality. Signer Name: Marcel Santana MD Signed: 12/05/2019 7:20 PM Workstation Name: [id number]
[2019-12-05 19:59] VITALS: BP 118/82
[2019-12-05] MEDS ORDERED: cefTRIAXone/NS 1 GM/50 ML 1 GM/50 ML BAG IV ONE (20:03)
[2019-12-05] MEDS ORDERED: BUTALB/ACETAMINOPHEN/CAFFEINE TAB PO ONE (20:05)
[2019-12-05] MEDS ORDERED: METOCLOPRAMIDE 10 MG/2 ML INJ IV ONE (20:05)
[2019-12-05] MEDS ORDERED: diphenhydrAMINE 50 MG/ML VIAL IV ONE (20:05)
== END 2019-12-05 22:50 | disposition home or self-care (01) ==
LOC: ED 13:32
DX: N39.0 Urinary tract infection, site not specified (principal); G44.209 Tension-type headache, unspecified, not intractable; R11.2 Nausea with vomiting, unspecified; Z98.890 Other specified postprocedural states; Z79.899 Other long term (current) drug therapy; Z88.8 Allergy status to other drugs, medicaments and biological substances
CPT/HCPCS: 36415; 70450; 80053; 81001; 81025; 83735; 84100; 85025; 87086; 96361; 96365; 96375; 99284; J0696; J1100; J1200; J2405; J2765; J7030